=== PATIENT | male | born 1955 | race Caucasian/White ===

== ENCOUNTER 2022-03-31 16:48 | Inpatient (IN) | payer BC ==
[~2022-03-31] VITALS: Ht 167.6 cm; Wt 93.2 kg
[2022-03-31] MEDS ORDERED: ondansetron/PF 4mg/2ml inj IV ONE (17:15)
[2022-03-31] MEDS ORDERED: morphine 4 MG/ML inj SYRINge IV PRN (17:15)
[2022-03-31] MEDS ORDERED: budesonide 0.5mg/2ml UD nebule IH ONE (17:40)
[2022-03-31 17:47] LABS: CLARITY,URINE CLOUDY (Clear); COLOR,URINE YELLOW (Yellow); GLUCOSE, URINE NEGATIVE (Neg); KETONES,URINE NEGATIVE (Neg); LEUKOCYTE ESTERASE ,URINE NEGATIVE (Neg); NITRITES, URINE NEGATIVE (Neg); OCCULT BLOOD,URINE LARGE (Neg); PROTEIN,URINE 30 mg/dl (Neg); UROBILINOGEN,URINE 0.2 E.U/dL (0.2-1.0)
[2022-03-31 17:48] LABS: BASOPHILS # (AUTO) 0.1 X10'3 (0-0.2); BASOPHILS % (AUTO) 0.3 % (0-1); EOSINOPHILS % (AUTO) 0 % (0-6); HEMATOCRIT 48.6 % (42.0-52.0); HEMOGLOBIN 16.4 g/dl (14.0-17.9); LYMPHOCYTES # (AUTO) 0.7 X10'3 (1.1-4.8); LYMPHOCYTES % (AUTO) 3.5 % (21-51); MEAN CORPUSCULAR HEMOGLOBIN 29.7 PG (27.0-31.0); MEAN CORPUSCULAR HGB CONC 33.8 g/dL (33.0-36.5); MEAN CORPUSCULAR VOLUME 87.9 FL (78-98); MEAN PLATELET VOLUME 7.9 FL (7.4-10.4); MONOCYTES # (AUTO) 1.2 X10'3 (0-0.9); NEUTROPHILS # (AUTO) 18.5 X10'3 (1.8-7.7); NEUTROPHILS % (AUTO) 90.2 % (42-75); PLATELET COUNT 268 X10'3 (140-440); RED BLOOD COUNT 5.53 X10'6 (4.70-6.10); RED CELL DISTRIBUTION WIDTH 12.9 % (11.5-14.5); WHITE BLOOD COUNT 20.6 X10'3 (4.5-11.0)
[2022-03-31 18:01] LABS: UA COLLECTION TYPE CLN CATCH MIDSTREAM
[2022-03-31 18:03] LABS: WBC,URINE 0-4 /HPF (0-4)
[2022-03-31 18:04] LABS: BACTERIA,URINE 1+ /HPF (Neg); RBC,URINE 20-50 /HPF (0-2)
[2022-03-31 18:05] LABS: COARSE GRANULAR CAST 0-3 /LPF (NEGATIVE); HYALINE CASTS 0-3 /LPF (NEGATIVE); SQUAMOUS EPITHELIAL CELL,UR FEW /LPF (FEW)
[2022-03-31 18:06] LABS: MUCUS STRANDS FEW /LPF (Neg)
[2022-03-31] MEDS ORDERED: normal saline 1000ml 1,000 ML IV ONE (18:30)
[2022-03-31 18:37] LABS: ALANINE AMINOTRANSFERASE 26 U/L (12-78); ALBUMIN 3.7 G/DL (3.4-5.0); ALBUMIN/GLOBULIN RATIO 0.9 (1.1-1.5); ALKALINE PHOSPHATASE 78 IU/L (46-116); ANION GAP 8 (8-16); ASPARTATE AMINO TRANSFERASE 24 U/L (10-37); BILIRUBIN,TOTAL 1.4 MG/DL (0.1-1.0); BLOOD UREA NITROGEN 15 MG/DL (7-18); CALCIUM 8.1 MG/DL (8.5-10.1); CHLORIDE 107 MMOL/L (99-107); CREATININE 1.25 MG/DL (0.60-1.10); GLUCOSE 152 MG/DL (70-104); POTASSIUM 3.6 MMOL/L (3.5-5.1); SODIUM 142 MMOL/L (135-145); TOTAL CARBON DIOXIDE 26.7 MMOL/L (24-32); TOTAL PROTEIN 7.6 G/DL (6.4-8.2); eGFR 58 ML/MIN
[2022-03-31 18:40] LABS: LIPASE 4757 U/L (73-393)
[2022-03-31] MEDS ORDERED: meropenem inj 500 MG in normal saline 100ml IV soln 100 ML IV ONE (20:35)
[2022-03-31] MEDS ORDERED: acetaminophen 325mg tablet PO PRN ×2 (20:50)
[2022-03-31] MEDS ORDERED: magnesium Cl slow-release 64mg tablet PO PRN (20:50)
[2022-03-31] MEDS ORDERED: magnesium 4gm in 100ml NS 100 ML IV PRN (20:50)
[2022-03-31] MEDS ORDERED: potassium Cl 40MEQ/1/2NS 520ml 520 ML IV PRN (20:50)
[2022-03-31] MEDS ORDERED: potassium Cl 20 mEq SR tablet PO PRN ×2 (20:50)
[2022-03-31] MEDS ORDERED: morphine 2 MG/ML inj. syringe IV PRN (20:50)
[2022-03-31] MEDS ORDERED: temazepam 15mg capsule PO PRN (21:00)
[2022-03-31] MEDS: morphine 2 MG/ML inj. syringe IV PRN (21:12)
[2022-03-31] MEDS: normal saline 1000ml 1,000 ML IV SCH (22:02)
--- NOTE | 2022-03-31 23:08 | NUR ---
I ASSESSED AND AGREE WITH CENTER HUMAN RESOURCES MANAGER ASSESSMENT
[2022-04-01] MEDS: piperacillin/tazo 3.375gm/50ml 50 ML IV SCH ×3 (00:36→15:41)
[2022-04-01] MEDS: morphine 2 MG/ML inj. syringe IV PRN ×4 (01:57→19:32)
[2022-04-01] MEDS ORDERED: HYDR12.55 PO (02:00)
[2022-04-01] MEDS ORDERED: ATOR40TA72 PO (02:00)
[2022-04-01] MEDS ORDERED: LOSA50TA64 PO (02:00)
[2022-04-01] MEDS ORDERED: AMLO5TAB16 PO (02:00)
[2022-04-01] MEDS ORDERED: ASPI81TA52 PO (02:00)
[2022-04-01] MEDS ORDERED: morphine 2 MG/ML inj. syringe IV PRN (02:20)
[2022-04-01 03:46] LABS: BASOPHILS % (AUTO) 0.1 % (0-1); EOSINOPHILS % (AUTO) 0 % (0-6); HEMATOCRIT 45.9 % (42.0-52.0); HEMOGLOBIN 15.1 g/dl (14.0-17.9); LYMPHOCYTES # (AUTO) 0.6 X10'3 (1.1-4.8); LYMPHOCYTES % (AUTO) 3.2 % (21-51); MEAN CORPUSCULAR HEMOGLOBIN 29.3 PG (27.0-31.0); MEAN CORPUSCULAR VOLUME 88.7 FL (78-98); MEAN PLATELET VOLUME 7.5 FL (7.4-10.4); MONOCYTES # (AUTO) 1.2 X10'3 (0-0.9); MONOCYTES % (AUTO) 6.2 % (2-12); NEUTROPHILS % (AUTO) 90.5 % (42-75); PLATELET COUNT 213 X10'3 (140-440); RED BLOOD COUNT 5.17 X10'6 (4.70-6.10); RED CELL DISTRIBUTION WIDTH 13.1 % (11.5-14.5); WHITE BLOOD COUNT 18.8 X10'3 (4.5-11.0)
[2022-04-01] MEDS: normal saline 1000ml 1,000 ML IV SCH ×4 (03:52→22:37)
[2022-04-01 04:03] LABS: ALANINE AMINOTRANSFERASE 22 U/L (12-78); ALBUMIN 3.3 G/DL (3.4-5.0); ALBUMIN/GLOBULIN RATIO 1.1 (1.1-1.5); ALKALINE PHOSPHATASE 67 IU/L (46-116); ANION GAP 8 (8-16); ASPARTATE AMINO TRANSFERASE 24 U/L (10-37); BILIRUBIN,TOTAL 1.4 MG/DL (0.1-1.0); BLOOD UREA NITROGEN 16 MG/DL (7-18); BUN/CREATININE RATIO 12.6 (5.4-32.0); CALCIUM 7.9 MG/DL (8.5-10.1); CHLORIDE 109 MMOL/L (99-107); CREATININE 1.27 MG/DL (0.60-1.10); GLUCOSE 154 MG/DL (70-104); POTASSIUM 3.8 MMOL/L (3.5-5.1); SODIUM 145 MMOL/L (135-145); TOTAL CARBON DIOXIDE 27.7 MMOL/L (24-32); TOTAL PROTEIN 6.3 G/DL (6.4-8.2); eGFR 57 ML/MIN
[2022-04-01 04:09] LABS: LIPASE 2718 U/L (73-393)
[2022-04-01] MEDS: heparin, porcine 5000 units/ml vial SQ SCH ×2 (07:40→19:32)
[2022-04-01] MEDS: atorvastatin 20mg tablet PO SCH (07:40)
[2022-04-01] MEDS: HYDROcodone/acetaminophen 10/325mg tab PO PRN ×4 (07:41→22:37)
[2022-04-01] MEDS: amLODIPine 5mg tablet PO SCH (07:41)
[2022-04-01] MEDS: aspirin 81mg, enteric-coated 1 TAB TABLET.DR PO SCH (07:42)
[2022-04-01] MEDS: losartan 50mg tablet PO SCH ×2 (07:46→19:32)
--- NOTE | 2022-04-01 10:45 | NUR ---
Called ED @ 1033 to get report. Placed on hold. Will wait for their return call.
--- NOTE | 2022-04-01 11:03 | NUR ---
Called surgical floor twice to give report RN not available
--- NOTE | 2022-04-01 11:15 | NUR ---
Called ED to get report. Placed on hold. Time for break nurse to provide a break. Will try to get report upon return from break.
--- NOTE | 2022-04-01 11:40 | NUR ---
Received report from ED RNMg
[2022-04-01 12:15] VITALS: BP 132/77
[2022-04-01] MEDS: magnesium hydroxide 30ml (MOM) UD suspension PO PRN (13:02)
[2022-04-01 18:00] VITALS: BP 141/72
--- NOTE | 2022-04-01 18:00 | NUR ---
Problems reprioritized. Patient report given, questions answered & plan of care reviewed with NICKI Asencio.
--- NOTE | 2022-04-01 19:10 | NUR ---
Patient in room ADALID 344. I have received report from CHRISTAL CACERES and had the opportunity to ask questions and assume patient care.
[2022-04-01 22:00] VITALS: BP 139/83
[2022-04-02] VITALS (22 sets, daily range): BP systolic 114–161; BP diastolic 73–94
[2022-04-02] MEDS: piperacillin/tazo 3.375gm/50ml 50 ML IV SCH ×4 (00:36→23:27)
[2022-04-02] MEDS: morphine 2 MG/ML inj. syringe IV PRN ×4 (00:36→21:45)
[2022-04-02] MEDS: HYDROcodone/acetaminophen 10/325mg tab PO PRN ×4 (03:07→18:43)
[2022-04-02] MEDS: normal saline 1000ml 1,000 ML IV SCH ×4 (05:03→21:47)
[2022-04-02] MEDS: ondansetron/PF 4mg/2ml inj IV PRN (05:24)
[2022-04-02 05:51] LABS: BASOPHILS % (AUTO) 0.2 % (0-1); EOSINOPHILS # (AUTO) 0.1 X10'3 (0-0.9); EOSINOPHILS % (AUTO) 0.4 % (0-6); HEMATOCRIT 40.8 % (42.0-52.0); HEMOGLOBIN 13.9 g/dl (14.0-17.9); LYMPHOCYTES # (AUTO) 0.6 X10'3 (1.1-4.8); LYMPHOCYTES % (AUTO) 3.5 % (21-51); MEAN CORPUSCULAR VOLUME 88.3 FL (78-98); MEAN PLATELET VOLUME 7.5 FL (7.4-10.4); MONOCYTES # (AUTO) 1.1 X10'3 (0-0.9); MONOCYTES % (AUTO) 6.7 % (2-12); NEUTROPHILS # (AUTO) 13.9 X10'3 (1.8-7.7); NEUTROPHILS % (AUTO) 89.2 % (42-75); PLATELET COUNT 194 X10'3 (140-440); RED BLOOD COUNT 4.61 X10'6 (4.70-6.10); RED CELL DISTRIBUTION WIDTH 13.1 % (11.5-14.5); WHITE BLOOD COUNT 15.6 X10'3 (4.5-11.0)
[2022-04-02 06:03] LABS: ALANINE AMINOTRANSFERASE 23 U/L (12-78); ALBUMIN/GLOBULIN RATIO 0.9 (1.1-1.5); ALKALINE PHOSPHATASE 77 IU/L (46-116); ANION GAP 9 (8-16); ASPARTATE AMINO TRANSFERASE 33 U/L (10-37); BILIRUBIN,TOTAL 2.8 MG/DL (0.1-1.0); BLOOD UREA NITROGEN 17 MG/DL (7-18); BUN/CREATININE RATIO 15.5 (5.4-32.0); CALCIUM 8.1 MG/DL (8.5-10.1); CHLORIDE 111 MMOL/L (99-107); GLUCOSE 119 MG/DL (70-104); POTASSIUM 3.7 MMOL/L (3.5-5.1); SODIUM 145 MMOL/L (135-145); TOTAL CARBON DIOXIDE 24.9 MMOL/L (24-32); TOTAL PROTEIN 6.3 G/DL (6.4-8.2); eGFR 67 ML/MIN
--- NOTE | 2022-04-02 06:30 | NUR ---
Patient in room ADALID 344. I have received report from NICKI Asencio and had the opportunity to ask questions and assume patient care.
[2022-04-02] MEDS: atorvastatin 20mg tablet PO SCH (08:07)
[2022-04-02] MEDS: amLODIPine 5mg tablet PO SCH (08:07)
[2022-04-02] MEDS: aspirin 81mg, enteric-coated 1 TAB TABLET.DR PO SCH (08:07)
[2022-04-02] MEDS: losartan 50mg tablet PO SCH ×2 (08:07→21:42)
[2022-04-02] MEDS: heparin, porcine 5000 units/ml vial SQ SCH ×2 (08:08→21:43)
[2022-04-02] MEDS ORDERED: bisacodyl 10mg suppository rectal RC PRN (08:25)
[2022-04-02 11:48] LABS: LIPASE 730 U/L (73-393)
[2022-04-02] MEDS ORDERED: BUPIVAcaine 0.5% inj/PF 30 ML ONE (12:12)
[2022-04-02] MEDS ORDERED: ketorolac trometh. 30mg/ml inj. IV ONE (12:35)
[2022-04-02] MEDS ORDERED: meperidine/PF 25mg/ml syringe IV PRN ×3 (12:35)
[2022-04-02] MEDS ORDERED: labetalol 20mg/4ml (5mg/ml) syringe IV PRN (12:35)
[2022-04-02] MEDS ORDERED: morphine 4 MG/ML inj SYRINge IV PRN (12:35)
[2022-04-02] MEDS ORDERED: proCHLORperazine 10 MG/2 ml inj IV PRN (12:35)
[2022-04-02] MEDS ORDERED: ringers solution, lacted 1,000 ML IV SCH (12:35)
[2022-04-02] MEDS ORDERED: hydrALAZINE 20mg/ml inj. IV PRN (12:35)
[2022-04-02] MEDS ORDERED: ondansetron/PF 4mg/2ml inj IV PRN ×2 (12:35→14:55)
[2022-04-02] MEDS ORDERED: acetaminophen 1,000mg/100ml IV 100 ML IV PRN (12:35)
[2022-04-02] MEDS ORDERED: morphine 2 MG/ML inj. syringe IV PRN (12:35)
[2022-04-02] MEDS ORDERED: sevoflurane 250ml liquid IH ONE (12:37)
[2022-04-02] MEDS ORDERED: midazolam 1 mg/ML 2ml injection ONE (12:39)
[2022-04-02] MEDS ORDERED: fentaNYL /PF 50mcg/ml 5ml ampule ONE (12:40)
[2022-04-02] MEDS ORDERED: rocuronium 10mg/ml inj IV ONE ×2 (13:07→14:32)
[2022-04-02] MEDS ORDERED: LIDOcaine 2% (20mg/ml) 5ml vial ONE (13:07)
[2022-04-02] MEDS ORDERED: propofol inj 20 ML IV ONE (13:07)
[2022-04-02] MEDS ORDERED: ceFOXitin 1000 MG inj ONE ×2 (13:07)
[2022-04-02] MEDS ORDERED: ePHEDrine 50MG/ML INJ. ONE (13:08)
[2022-04-02] MEDS ORDERED: BUPIVAcaine 0.5% inj/PF 30 ml vial IJ ONE (13:29)
[2022-04-02] MEDS ORDERED: BUPIVACAINE liposomal/PF 13.3 MG/ML vial IM ONE (14:31)
[2022-04-02] MEDS ORDERED: BUPIVAcaine/PF 5 mg/ml 10ml ONE (14:31)
[2022-04-02] MEDS ORDERED: dexamethasone sod phosphate 4mg/ml inj. ONE (14:32)
[2022-04-02] MEDS ORDERED: ondansetron/PF 4mg/2ml inj ONE (14:32)
[2022-04-02] MEDS ORDERED: naloxone 0.4 mg/ml inj IV PRN (14:55)
[2022-04-02] MEDS ORDERED: sugammadex 200mg/2ml injection IV ONE (15:03)
[2022-04-02] MEDS ORDERED: furosemide 40mg/4ml inj ONE (15:13)
--- NOTE | 2022-04-02 15:15 | NUR ---
Received from OR via HOSPITAL BED, accompanied by Anesthesiologist DR BRUCE and report given by Anesthesiolgist. PT IS GROGGY, BUT DOES RESPOND TO VERBAL STIMULI. PT PLACED ON BEDSIDE MONITOR, VSS. PT RECEIVING 15L O2 TO MASK, ANESTHESIA PLACED ORAL AIRWAY D/T LOW O2 SAT. VERBAL ORDER RECEIVED FROM ANESTHESIA TO OVERRIDE LASIX, 20MG LASIX GIVEN D/T PT LUNGS SOUND OF FINE CRACKLES, SLIGHT EXPIRATORY WHEEZE. PAGE HAS BEEN PLACED OT RT FOR BREATHING TREATMENT. PT HAS 20G PIV TO LEFT WRIST WITH LR INFUSING ORDERED. PT HAS MIDLINE ABLE DRSG WITH SMALL AMOUNT OF DRAINAGE NOTED AND MARKED. DAV DRAIN TO RT UPPER QUAD WITH DRSG. SMALL AMOUNT OF SEROSANGUINEOUS DRAINAGE NOTED IN BULB. PT HAS F/C WITH SUMIT URINE DRAINING TO GRAVITY. PT RESTING WITH NO S/S OF DISCOMFORT NOTED AT THIS TIME. WILL CONTINUE TO ASSESS
[2022-04-02] MEDS ORDERED: ipratropium/albuterol 3ml nebule IH ONE (15:20)
--- NOTE | 2022-04-02 16:15 | NUR ---
90ML OF SEROSANGUINEOUS DRAINAGE EMPTIED FROM DAV
--- NOTE | 2022-04-02 16:35 | NUR ---
Received report from ED RNDerrick
[2022-04-02] MEDS ORDERED: ipratropium/albuterol 3ml nebule NEB PRN (16:45)
--- NOTE | 2022-04-02 16:52 | NUR ---
REPORT GIVEN TO CHRISTAL RN AND ALL QUESTIONS ANSWERED. PATIENT TRANSFERRED TO SURG. LABELED BELONGINGS PRESENT AND DELIVERED TO ROOM. RN PRESENT ALL CRITERIA FOR TRANSFER BACK TO THE FLOOR HAS BEEN ACHIEVED. VSS. PAIN AT A TOLERABLE LEVEL. BED LOW, CALL LIGHT PRESENT AND 2 RAILS DOWN. RN AWARE THAT PATIENT HAS ARRIVED. TO ACCEPT CARE OF PATIENT.
[2022-04-02] MEDS ORDERED: HALLS - SOOTHE MENTHOL 1.8 MG cough drop LOZENGE MM PRN (18:45)
[2022-04-03] MEDS: morphine 2 MG/ML inj. syringe IV PRN ×5 (02:28→21:09)
[2022-04-03 06:00] VITALS: BP 142/79
[2022-04-03] MEDS: normal saline 1000ml 1,000 ML IV SCH ×3 (06:02→18:33)
--- NOTE | 2022-04-03 06:30 | NUR ---
Problems reprioritized. Patient report given, questions answered & plan of care reviewed with NICKI Ortiz.
[2022-04-03 06:35] LABS: ALANINE AMINOTRANSFERASE 79 U/L (12-78); ALBUMIN 2.4 G/DL (3.4-5.0); ALBUMIN/GLOBULIN RATIO 0.7 (1.1-1.5); ALKALINE PHOSPHATASE 90 IU/L (46-116); ANION GAP 8 (8-16); ASPARTATE AMINO TRANSFERASE 106 U/L (10-37); BILIRUBIN,TOTAL 1.2 MG/DL (0.1-1.0); BLOOD UREA NITROGEN 19 MG/DL (7-18); BUN/CREATININE RATIO 16.7 (5.4-32.0); CHLORIDE 111 MMOL/L (99-107); CREATININE 1.14 MG/DL (0.60-1.10); GLUCOSE 149 MG/DL (70-104); LIPASE 163 U/L (73-393); MAGNESIUM 2.7 MG/DL (1.5-2.4); PHOSPHORUS 1.8 MG/DL (2.3-4.5); POTASSIUM 3.7 MMOL/L (3.5-5.1); SODIUM 145 MMOL/L (135-145); TOTAL CARBON DIOXIDE 26.5 MMOL/L (24-32); TOTAL PROTEIN 5.8 G/DL (6.4-8.2); eGFR 65 ML/MIN
[2022-04-03 06:40] LABS: BASOPHILS % (AUTO) 0 % (0-1); EOSINOPHILS % (AUTO) 0 % (0-6); HEMATOCRIT 36.5 % (42.0-52.0); HEMOGLOBIN 12.4 g/dl (14.0-17.9); LYMPHOCYTES # (AUTO) 0.4 X10'3 (1.1-4.8); LYMPHOCYTES % (AUTO) 3.4 % (21-51); MEAN CORPUSCULAR HEMOGLOBIN 29.7 PG (27.0-31.0); MEAN CORPUSCULAR VOLUME 87.5 FL (78-98); MEAN PLATELET VOLUME 7.5 FL (7.4-10.4); MONOCYTES # (AUTO) 0.7 X10'3 (0-0.9); MONOCYTES % (AUTO) 5.3 % (2-12); NEUTROPHILS % (AUTO) 91.3 % (42-75); PLATELET COUNT 199 X10'3 (140-440); RED BLOOD COUNT 4.17 X10'6 (4.70-6.10); WHITE BLOOD COUNT 13.1 X10'3 (4.5-11.0)
--- NOTE | 2022-04-03 06:40 | NUR ---
Problems reprioritized. Patient report given, questions answered & plan of care reviewed with NICKI Ortiz.
[2022-04-03] MEDS: aspirin 81mg, enteric-coated 1 TAB TABLET.DR PO SCH (08:00)
--- NOTE | 2022-04-03 08:02 | NUR ---
Patient in room ADALID 344A. I have received report from NICKI SIEGEL and had the opportunity to ask questions and assume patient care.
[2022-04-03] MEDS: HYDROcodone/acetaminophen 10/325mg tab PO PRN ×4 (09:19→23:16)
[2022-04-03] MEDS: atorvastatin 20mg tablet PO SCH (09:27)
[2022-04-03] MEDS: amLODIPine 5mg tablet PO SCH (09:29)
[2022-04-03] MEDS: losartan 50mg tablet PO SCH ×2 (09:29→20:24)
[2022-04-03] MEDS: heparin, porcine 5000 units/ml vial SQ SCH ×2 (09:30→20:24)
[2022-04-03 10:00] VITALS: BP 155/81
[2022-04-03] MEDS: piperacillin/tazo 3.375gm/50ml 50 ML IV SCH ×3 (10:51→23:53)
[2022-04-03] MEDS: ondansetron/PF 4mg/2ml inj IV PRN (11:48)
[2022-04-03 18:30] VITALS: BP 162/91
--- NOTE | 2022-04-03 18:32 | NUR ---
Problems reprioritized. Patient report given, questions answered & plan of care reviewed with NICKI ANAYA.
[2022-04-03 23:00] VITALS: BP 155/71
[2022-04-04] MEDS: normal saline 1000ml 1,000 ML IV SCH ×3 (01:24→18:27)
[2022-04-04] MEDS: morphine 2 MG/ML inj. syringe IV PRN ×6 (01:24→23:12)
[2022-04-04] MEDS: HYDROcodone/acetaminophen 10/325mg tab PO PRN ×3 (03:11→12:05)
[2022-04-04 06:00] VITALS: BP 157/86
[2022-04-04 06:05] LABS: BASOPHILS % (AUTO) 0 % (0-1); EOSINOPHILS # (AUTO) 0.1 X10'3 (0-0.9); EOSINOPHILS % (AUTO) 0.9 % (0-6); HEMATOCRIT 35.5 % (42.0-52.0); HEMOGLOBIN 12.2 g/dl (14.0-17.9); LYMPHOCYTES # (AUTO) 0.5 X10'3 (1.1-4.8); LYMPHOCYTES % (AUTO) 3.7 % (21-51); MEAN CORPUSCULAR HEMOGLOBIN 30.2 PG (27.0-31.0); MEAN CORPUSCULAR HGB CONC 34.5 g/dL (33.0-36.5); MEAN CORPUSCULAR VOLUME 87.7 FL (78-98); MEAN PLATELET VOLUME 7.2 FL (7.4-10.4); MONOCYTES # (AUTO) 1.2 X10'3 (0-0.9); NEUTROPHILS # (AUTO) 11.7 X10'3 (1.8-7.7); NEUTROPHILS % (AUTO) 86.4 % (42-75); PLATELET COUNT 218 X10'3 (140-440); RED BLOOD COUNT 4.05 X10'6 (4.70-6.10); RED CELL DISTRIBUTION WIDTH 12.7 % (11.5-14.5); WHITE BLOOD COUNT 13.5 X10'3 (4.5-11.0)
[2022-04-04 06:29] LABS: ALANINE AMINOTRANSFERASE 115 U/L (12-78); ALBUMIN 2.3 G/DL (3.4-5.0); ALBUMIN/GLOBULIN RATIO 0.7 (1.1-1.5); ALKALINE PHOSPHATASE 202 IU/L (46-116); ANION GAP 7 (8-16); ASPARTATE AMINO TRANSFERASE 153 U/L (10-37); BILIRUBIN,TOTAL 1.9 MG/DL (0.1-1.0); BLOOD UREA NITROGEN 17 MG/DL (7-18); BUN/CREATININE RATIO 16.7 (5.4-32.0); CALCIUM 7.7 MG/DL (8.5-10.1); CHLORIDE 110 MMOL/L (99-107); CREATININE 1.02 MG/DL (0.60-1.10); GLUCOSE 112 MG/DL (70-104); LIPASE 83 U/L (73-393); MAGNESIUM 2.4 MG/DL (1.5-2.4); PHOSPHORUS 1.9 MG/DL (2.3-4.5); POTASSIUM 3.6 MMOL/L (3.5-5.1); SODIUM 144 MMOL/L (135-145); TOTAL CARBON DIOXIDE 27.2 MMOL/L (24-32); TOTAL PROTEIN 5.6 G/DL (6.4-8.2); eGFR 74 ML/MIN
--- NOTE | 2022-04-04 06:36 | NUR ---
Problems reprioritized. Patient report given, questions answered & plan of care reviewed with HUGH. Addendum: 04/04/22 at 0636 by Esau Jones RN Amended: Links added.
[2022-04-04] MEDS: aspirin 81mg, enteric-coated 1 TAB TABLET.DR PO SCH (07:15)
[2022-04-04] MEDS: atorvastatin 20mg tablet PO SCH (07:15)
[2022-04-04] MEDS: piperacillin/tazo 3.375gm/50ml 50 ML IV SCH ×2 (07:15→15:31)
[2022-04-04] MEDS: amLODIPine 5mg tablet PO SCH (07:16)
[2022-04-04] MEDS: losartan 50mg tablet PO SCH ×2 (07:16→20:04)
[2022-04-04] MEDS: heparin, porcine 5000 units/ml vial SQ SCH ×2 (07:16→20:04)
--- NOTE | 2022-04-04 10:23 | NUR ---
Ambulated in bryan x3 laps. Pt tolerated well. 02 94% 5LNC
[2022-04-04 12:00] VITALS: BP 164/72
--- NOTE | 2022-04-04 12:05 | NUR ---
Pt ambulated in bryan with 4x laps. Tolerated well, 94% 6LNC
[2022-04-04] MEDS: HYDROcodone/acetaminophen 5mg/325mg tablet PO PRN ×2 (15:31→20:00)
--- NOTE | 2022-04-04 16:39 | NUR ---
Pt ambulated in bryan x4 laps. O2 tank was empty and sats 84% ambulating on RA. 95% 5LNC. RN to continue to monitor.
[2022-04-04 18:00] VITALS: BP 143/79
[2022-04-04 18:30] VITALS: BP 143/79
--- NOTE | 2022-04-04 18:45 | NUR ---
DECREASED OXYGEN FROM 5 LPM TO 4 LPM
[2022-04-05] MEDS: piperacillin/tazo 3.375gm/50ml 50 ML IV SCH ×3 (00:44→15:32)
[2022-04-05] MEDS: HYDROcodone/acetaminophen 5mg/325mg tablet PO PRN ×2 (00:46→04:25)
[2022-04-05] MEDS: normal saline 1000ml 1,000 ML IV SCH ×3 (02:17→14:18)
[2022-04-05 05:58] LABS: BASOPHILS % (AUTO) 0.1 % (0-1); EOSINOPHILS # (AUTO) 0.2 X10'3 (0-0.9); EOSINOPHILS % (AUTO) 1.7 % (0-6); HEMATOCRIT 37.7 % (42.0-52.0); HEMOGLOBIN 12.5 g/dl (14.0-17.9); LYMPHOCYTES # (AUTO) 0.6 X10'3 (1.1-4.8); LYMPHOCYTES % (AUTO) 4.7 % (21-51); MEAN CORPUSCULAR HEMOGLOBIN 29.1 PG (27.0-31.0); MEAN CORPUSCULAR HGB CONC 33.1 g/dL (33.0-36.5); MEAN PLATELET VOLUME 7.3 FL (7.4-10.4); MONOCYTES # (AUTO) 1.4 X10'3 (0-0.9); MONOCYTES % (AUTO) 10.4 % (2-12); NEUTROPHILS # (AUTO) 11.4 X10'3 (1.8-7.7); NEUTROPHILS % (AUTO) 83.1 % (42-75); PLATELET COUNT 231 X10'3 (140-440); RED BLOOD COUNT 4.29 X10'6 (4.70-6.10); RED CELL DISTRIBUTION WIDTH 13.2 % (11.5-14.5); WHITE BLOOD COUNT 13.8 X10'3 (4.5-11.0)
[2022-04-05 06:00] VITALS: BP 150/74
[2022-04-05 06:16] LABS: ALANINE AMINOTRANSFERASE 107 U/L (12-78); ALBUMIN 2.2 G/DL (3.4-5.0); ALBUMIN/GLOBULIN RATIO 0.6 (1.1-1.5); ALKALINE PHOSPHATASE 291 IU/L (46-116); ANION GAP 8 (8-16); ASPARTATE AMINO TRANSFERASE 113 U/L (10-37); BILIRUBIN,TOTAL 2.7 MG/DL (0.1-1.0); BLOOD UREA NITROGEN 15 MG/DL (7-18); BUN/CREATININE RATIO 14.2 (5.4-32.0); CALCIUM 8.1 MG/DL (8.5-10.1); CHLORIDE 106 MMOL/L (99-107); CREATININE 1.06 MG/DL (0.60-1.10); GLUCOSE 105 MG/DL (70-104); LIPASE < 50 U/L (73-393); MAGNESIUM 2.1 MG/DL (1.5-2.4); POTASSIUM 3.3 MMOL/L (3.5-5.1); SODIUM 142 MMOL/L (135-145); TOTAL CARBON DIOXIDE 28.1 MMOL/L (24-32); TOTAL PROTEIN 5.8 G/DL (6.4-8.2); eGFR 70 ML/MIN
--- NOTE | 2022-04-05 06:45 | NUR ---
Patient in room ADALID 344. I have received report from Oscar CACERES and had the opportunity to ask questions and assume patient care.
--- NOTE | 2022-04-05 07:01 | NUR ---
Problems reprioritized. Patient report given, questions answered & plan of care reviewed with DAVID. Addendum: 04/05/22 at 0701 by Esau Jones RN Amended: Links added.
[2022-04-05] MEDS: heparin, porcine 5000 units/ml vial SQ SCH ×2 (08:13→21:11)
[2022-04-05] MEDS: aspirin 81mg, enteric-coated 1 TAB TABLET.DR PO SCH (08:14)
[2022-04-05] MEDS: amLODIPine 5mg tablet PO SCH (08:14)
[2022-04-05] MEDS: losartan 50mg tablet PO SCH ×2 (08:14→21:12)
[2022-04-05] MEDS: atorvastatin 20mg tablet PO SCH (08:15)
[2022-04-05] MEDS: HYDROcodone/acetaminophen 10/325mg tab PO PRN ×4 (08:34→21:35)
[2022-04-05 11:00] VITALS: BP 153/78
--- NOTE | 2022-04-05 11:42 | NUR ---
Initial: Pt admit for gallstone pancreatitis, currently POD #3 s/p open cholecystectomy. Diet was advanced to ice chips 04/03 with orders to remove NGT. Recommend advancing to regular diet as medically indicated, pt now day 5 with an insufficient diet order. LBM 2, not receiving any routine bowel care and last received PRN MoM 04/01. Unable to provide nutrition intervention to assist with bowel regularity given current diet order. Per dowel sander operator bowel sounds are much improved. Will continue to follow closely and make recommendations as appropriate. Recommendations: 1) Advance to regular diet as medically indicated; low fat diet if pt with c/o pain and/or diarrhea with diet advancement 2) Initiate nutrition support if expected to continue with insufficient diet order, now day 5 3) Routine bowel care; no BM x 7 days per EMR 4) Scaled weight this admit; subsequent weekly scaled weights Addendum: 04/05/22 at [address] Amended: Links added.
[2022-04-05] MEDS ORDERED: potassium phosphate inj 30 MMOL in normal saline 250ml IV soln 250 ML IV ONE (14:15)
--- NOTE | 2022-04-05 14:39 | NUR ---
Dr Oden rounded aware patients T Bili today 2.7 up from 1.9 will continue to monitor. Change diet to clear in the am.
[2022-04-05 18:00] VITALS: BP 178/87
--- NOTE | 2022-04-05 18:36 | NUR ---
Problems reprioritized. Patient report given, questions answered & plan of care reviewed with Marifer CACERES.
[2022-04-05 21:06] VITALS: BP 154/81
[2022-04-06] MEDS: piperacillin/tazo 3.375gm/50ml 50 ML IV SCH ×4 (00:18→23:33)
[2022-04-06] MEDS: normal saline 1000ml 1,000 ML IV SCH ×2 (00:22→13:00)
[2022-04-06] MEDS: HYDROcodone/acetaminophen 10/325mg tab PO PRN ×7 (01:06→23:36)
[2022-04-06 05:12] VITALS: BP 177/87
--- NOTE | 2022-04-06 06:34 | NUR ---
Problems reprioritized. Patient report given, questions answered & plan of care reviewed with CRISTIAN SMALL.
[2022-04-06 06:37] LABS: LIPASE < 50 U/L (73-393); MAGNESIUM 2.1 MG/DL (1.5-2.4); PHOSPHORUS 2.3 MG/DL (2.3-4.5)
--- NOTE | 2022-04-06 06:50 | NUR ---
Patient in room ADALID 344. I have received report from NICKI Caicedo and had the opportunity to ask questions and assume patient care.
[2022-04-06] MEDS: atorvastatin 20mg tablet PO SCH (08:38)
[2022-04-06] MEDS: aspirin 81mg, enteric-coated 1 TAB TABLET.DR PO SCH (08:38)
[2022-04-06] MEDS: heparin, porcine 5000 units/ml vial SQ SCH ×2 (08:39→19:28)
[2022-04-06] MEDS: losartan 50mg tablet PO SCH ×3 (08:39→19:25)
[2022-04-06] MEDS: amLODIPine 5mg tablet PO SCH (08:41)
[2022-04-06] MEDS: magnesium hydroxide 30ml (MOM) UD suspension PO PRN (08:54)
[2022-04-06 11:00] VITALS: BP 162/76
--- NOTE | 2022-04-06 11:49 | NUR ---
Student Medication Administration: For this medication-pass time frame, all medication were reviewed, dispensed, administered and documented per hospital policy by kiran Sow.
--- NOTE | 2022-04-06 11:49 | NUR ---
Student documentation: I have reviewed and agree with all interventions, assessments performed and documented by Juanjose student nurse.
--- NOTE | 2022-04-06 12:50 | NUR ---
PRESSURE ULCER EDUCATION: DEFINITION: A pressure ulcer is an area of skin that breaks down when you stay in one position too long. The constant pressure against the skin reduces the blood flow to that area and the affected tissue dies. CAUSES: "Being bedridden or in a wheelchair "Fragile skin "Having a chronic condition, such as diabetes or vascular disease "Inability to move certain parts of your body without assistance "Older age "Incontinence of urine or stool SYMPTOMS: "A reddened area that DOES NOT turn white when pressed on - this can be the beginning of a pressure ulcer "A blister, deep sore or a crater - these can be advanced pressure ulcers FIRST AID: "Relieve the pressure on this area "Keep the area clean and dry "Call your primary doctor if you see any of the above symptoms "DO NOT massage the area "DO NOT use a donut shaped or ring shaped pillow- these actually interfere with the blood flow and cause complications PREVENTION: "Check for pressure ulcers everyday "Change position at least every two hours to relieve pressure "Use items that help relieve pressure- pillows, sheepskin, foam padding, and powders. "Keep skin clean and dry "Eat healthy well balanced meals "Exercise daily IF YOU SEE ANY OF THESE SYMPTOMS WHILE IN THE HOSPITAL - TELL YOUR NURSE IMMEDIATELY. IF YOU SEE ANY OF THESE SYMPTOMS WHILE AT HOME OR HAVE ANY QUESTIONS OR CONCERNS ABOUT PRESSURE ULCERS - CALL YOUR PRIMARY DOCTOR IMMEDIATELY. Addendum: 04/06/22 at 1250 by Fina Milan RN Amended: Links added.
[2022-04-06 13:12] VITALS: BP 150/82
[2022-04-06 18:00] VITALS: BP 156/82
--- NOTE | 2022-04-06 18:12 | NUR ---
Problems reprioritized. Patient report given, questions answered & plan of care reviewed with ryan. Addendum: 04/06/22 at 1813 by Lora Lincoln LVN Problems reprioritized. Patient report given, questions answered & plan of care reviewed with NICKI Caicedo.
[2022-04-06 19:32] VITALS: BP 115/89
[2022-04-06 23:33] VITALS: BP 159/81
[2022-04-07] MEDS: HYDROcodone/acetaminophen 10/325mg tab PO PRN ×5 (04:04→21:51)
[2022-04-07] MEDS: normal saline 1000ml 1,000 ML IV SCH ×2 (06:17→09:08)
[2022-04-07 06:18] LABS: LIPASE 52 U/L (73-393); MAGNESIUM 2.1 MG/DL (1.5-2.4); PHOSPHORUS 2.1 MG/DL (2.3-4.5)
--- NOTE | 2022-04-07 06:31 | NUR ---
Problems reprioritized. Patient report given, questions answered & plan of care reviewed with NICKI HERNANDEZ.
[2022-04-07 07:00] VITALS: BP 158/80
--- NOTE | 2022-04-07 07:01 | NUR ---
Patient in room ADALID 344. I have received report from Marifer CACERES and had the opportunity to ask questions and assume patient care.
[2022-04-07 07:20] VITALS: BP 158/80
[2022-04-07] MEDS: aspirin 81mg, enteric-coated 1 TAB TABLET.DR PO SCH (08:41)
[2022-04-07] MEDS: losartan 50mg tablet PO SCH ×2 (08:41→21:58)
[2022-04-07] MEDS: piperacillin/tazo 3.375gm/50ml 50 ML IV SCH ×2 (08:41→15:43)
[2022-04-07] MEDS: atorvastatin 20mg tablet PO SCH (08:42)
[2022-04-07] MEDS: amLODIPine 5mg tablet PO SCH (08:43)
[2022-04-07] MEDS: heparin, porcine 5000 units/ml vial SQ SCH ×2 (08:45→21:53)
[2022-04-07 10:53] LABS: BASOPHILS # (AUTO) 0.1 X10'3 (0-0.2); BASOPHILS % (AUTO) 0.3 % (0-1); EOSINOPHILS # (AUTO) 0.4 X10'3 (0-0.9); EOSINOPHILS % (AUTO) 1.9 % (0-6); HEMATOCRIT 36.7 % (42.0-52.0); HEMOGLOBIN 12.3 g/dl (14.0-17.9); LYMPHOCYTES # (AUTO) 0.6 X10'3 (1.1-4.8); MEAN CORPUSCULAR HEMOGLOBIN 29.4 PG (27.0-31.0); MEAN CORPUSCULAR HGB CONC 33.4 g/dL (33.0-36.5); MEAN PLATELET VOLUME 7.6 FL (7.4-10.4); MONOCYTES # (AUTO) 1.8 X10'3 (0-0.9); MONOCYTES % (AUTO) 9.2 % (2-12); NEUTROPHILS # (AUTO) 16.5 X10'3 (1.8-7.7); NEUTROPHILS % (AUTO) 85.6 % (42-75); PLATELET COUNT 250 X10'3 (140-440); RED BLOOD COUNT 4.17 X10'6 (4.70-6.10); RED CELL DISTRIBUTION WIDTH 13.1 % (11.5-14.5); WHITE BLOOD COUNT 19.3 X10'3 (4.5-11.0)
[2022-04-07 11:00] VITALS: BP 147/81
[2022-04-07] MEDS: furosemide 20 MG/2 ML vial IV SCH ×2 (11:10→15:51)
[2022-04-07 11:15] LABS: ALANINE AMINOTRANSFERASE 57 U/L (12-78); ALBUMIN 1.9 G/DL (3.4-5.0); ALBUMIN/GLOBULIN RATIO 0.5 (1.1-1.5); ALKALINE PHOSPHATASE 328 IU/L (46-116); ANION GAP 9 (8-16); ASPARTATE AMINO TRANSFERASE 52 U/L (10-37); BILIRUBIN,TOTAL 1.4 MG/DL (0.1-1.0); BLOOD UREA NITROGEN 12 MG/DL (7-18); BUN/CREATININE RATIO 14.1 (5.4-32.0); CALCIUM 8.1 MG/DL (8.5-10.1); CHLORIDE 106 MMOL/L (99-107); CREATININE 0.85 MG/DL (0.60-1.10); GLUCOSE 108 MG/DL (70-104); POTASSIUM 3.3 MMOL/L (3.5-5.1); SODIUM 140 MMOL/L (135-145); TOTAL CARBON DIOXIDE 24.7 MMOL/L (24-32); TOTAL PROTEIN 5.5 G/DL (6.4-8.2); eGFR > 90 ML/MIN
[2022-04-07] MEDS ORDERED: potassium phosphate inj 30 MMOL in normal saline 250ml IV soln 250 ML IV ONE (13:10)
--- NOTE | 2022-04-07 13:24 | NUR ---
DC DAV drain on right abdomen. Pt tolerated procedure well. 60ml of serosanguineous drainage emptied prior to removal.
[2022-04-07 18:00] VITALS: BP 140/80
--- NOTE | 2022-04-07 18:36 | NUR ---
Problems reprioritized. Patient report given, questions answered & plan of care reviewed with Marifer CACERES.
[2022-04-07 22:00] VITALS: BP 144/78
[2022-04-08] VITALS (7 sets, daily range): BP systolic 114–150; BP diastolic 68–78
[2022-04-08] MEDS: piperacillin/tazo 3.375gm/50ml 50 ML IV SCH ×3 (00:38→15:34)
[2022-04-08] MEDS: furosemide 20 MG/2 ML vial IV SCH ×3 (00:39→15:52)
[2022-04-08] MEDS: HYDROcodone/acetaminophen 10/325mg tab PO PRN ×5 (01:39→21:39)
--- NOTE | 2022-04-08 06:20 | NUR ---
Problems reprioritized. Patient report given, questions answered & plan of care reviewed with NICKI RENEE.
[2022-04-08] MEDS: aspirin 81mg, enteric-coated 1 TAB TABLET.DR PO SCH (08:17)
[2022-04-08] MEDS: amLODIPine 5mg tablet PO SCH (08:18)
[2022-04-08] MEDS: atorvastatin 20mg tablet PO SCH (08:19)
[2022-04-08] MEDS: losartan 50mg tablet PO SCH ×2 (08:21→21:38)
[2022-04-08] MEDS: heparin, porcine 5000 units/ml vial SQ SCH ×2 (08:22→21:42)
--- NOTE | 2022-04-08 08:30 | NUR ---
Student Medication Administration: For this medication-pass time frame, all medication were reviewed, dispensed, administered and documented per hospital policy by Corrine Felix and Kimberly Musa.
--- NOTE | 2022-04-08 09:33 | NUR ---
Reassessment: Patient's diet was advanced to clear liquids 04/05 then full liquids 04/07, documented with 100% PO intake of first two full liquid meals. Per EMR pt with active bowel sounds and LBM 04/07. Hopeful that diet can be advanced to solid food soon. If diet does not get advanced or PO intake is poor with diet advancement pt would benefit from Ensure to assist with meeting estimated nutrient needs. Will continue to follow closely and make recommendations as appropriate. Recommendations: 1) Advance to regular diet as medically indicated; low fat diet if pt with c/o pain and/or diarrhea with diet advancement 2) Monitor need for ONS; Ensure Plus HP TID if pt to continue on full liquid diet 3) Routine bowel care; previously constipated 4) Scaled weight this admit; subsequent weekly scaled weights Addendum: 04/08/22 at [address] Amended: Links added.
[2022-04-08 11:50] LABS: BASOPHILS # (AUTO) 0.1 X10'3 (0-0.2); BASOPHILS % (AUTO) 0.3 % (0-1); EOSINOPHILS # (AUTO) 0.5 X10'3 (0-0.9); HEMATOCRIT 37.9 % (42.0-52.0); HEMOGLOBIN 12.9 g/dl (14.0-17.9); LYMPHOCYTES # (AUTO) 0.9 X10'3 (1.1-4.8); LYMPHOCYTES % (AUTO) 3.8 % (21-51); MEAN CORPUSCULAR HEMOGLOBIN 29.8 PG (27.0-31.0); MEAN CORPUSCULAR HGB CONC 34.2 g/dL (33.0-36.5); MEAN CORPUSCULAR VOLUME 87.1 FL (78-98); MONOCYTES # (AUTO) 1.3 X10'3 (0-0.9); MONOCYTES % (AUTO) 5.5 % (2-12); NEUTROPHILS # (AUTO) 20.1 X10'3 (1.8-7.7); NEUTROPHILS % (AUTO) 88.4 % (42-75); PLATELET COUNT 281 X10'3 (140-440); RED BLOOD COUNT 4.35 X10'6 (4.70-6.10); WHITE BLOOD COUNT 22.7 X10'3 (4.5-11.0)
[2022-04-08 12:11] LABS: PLATELET ESTIMATE NORMAL; TOTAL CELLS COUNTED 100
--- NOTE | 2022-04-08 15:39 | NUR ---
Student Medication Administration: For this medication-pass time frame, all medication were reviewed, dispensed, administered and documented per hospital policy by Corrine Felix and Kimberly Musa RN.
--- NOTE | 2022-04-08 18:37 | NUR ---
Problems reprioritized. Patient report given, questions answered & plan of care reviewed with KERRI MANNING RN.
--- NOTE | 2022-04-08 18:55 | NUR ---
Student documentation: I have reviewed and agree with all interventions, assessments performed and documented by Betty Felix student nurse, by Herbert Musa RN, instructor.
--- NOTE | 2022-04-08 18:56 | NUR ---
Patient in room ADALID 344. I have received report from THELMA CACERES and had the opportunity to ask questions and assume patient care.
[2022-04-08] MEDS: diatr meglu/diatrizoate 30ml oral sol.-(3 dose) bottle PO SCH (21:43)
[2022-04-08] MEDS: normal saline 1000ml 1,000 ML IV SCH (22:24)
[2022-04-09] MEDS: furosemide 20 MG/2 ML vial IV SCH ×4 (00:12→23:28)
[2022-04-09] MEDS: piperacillin/tazo 3.375gm/50ml 50 ML IV SCH ×4 (00:13→23:28)
[2022-04-09] MEDS: HYDROcodone/acetaminophen 10/325mg tab PO PRN ×5 (05:19→23:29)
[2022-04-09 06:00] VITALS: BP 134/71
--- NOTE | 2022-04-09 06:36 | NUR ---
Problems reprioritized. Patient report given, questions answered & plan of care reviewed with NAM CACERES.
[2022-04-09 07:45] LABS: BASOPHILS % (AUTO) 0.2 % (0-1); EOSINOPHILS # (AUTO) 0.6 X10'3 (0-0.9); EOSINOPHILS % (AUTO) 2.5 % (0-6); HEMATOCRIT 35.5 % (42.0-52.0); LYMPHOCYTES # (AUTO) 0.7 X10'3 (1.1-4.8); MEAN CORPUSCULAR HEMOGLOBIN 29.5 PG (27.0-31.0); MEAN CORPUSCULAR HGB CONC 33.8 g/dL (33.0-36.5); MEAN CORPUSCULAR VOLUME 87.3 FL (78-98); MEAN PLATELET VOLUME 7.4 FL (7.4-10.4); MONOCYTES # (AUTO) 1.6 X10'3 (0-0.9); MONOCYTES % (AUTO) 7.2 % (2-12); NEUTROPHILS # (AUTO) 19.1 X10'3 (1.8-7.7); NEUTROPHILS % (AUTO) 87.1 % (42-75); PLATELET COUNT 271 X10'3 (140-440); RED BLOOD COUNT 4.06 X10'6 (4.70-6.10); RED CELL DISTRIBUTION WIDTH 12.9 % (11.5-14.5)
[2022-04-09 07:58] LABS: ALANINE AMINOTRANSFERASE 75 U/L (12-78); ALBUMIN 1.8 G/DL (3.4-5.0); ALBUMIN/GLOBULIN RATIO 0.4 (1.1-1.5); ALKALINE PHOSPHATASE 506 IU/L (46-116); ANION GAP 7 (8-16); ASPARTATE AMINO TRANSFERASE 93 U/L (10-37); BILIRUBIN,TOTAL 1.5 MG/DL (0.1-1.0); BLOOD UREA NITROGEN 13 MG/DL (7-18); BUN/CREATININE RATIO 11.8 (5.4-32.0); CALCIUM 8.4 MG/DL (8.5-10.1); CHLORIDE 102 MMOL/L (99-107); GLUCOSE 134 MG/DL (70-104); POTASSIUM 3.3 MMOL/L (3.5-5.1); SODIUM 139 MMOL/L (135-145); TOTAL CARBON DIOXIDE 29.7 MMOL/L (24-32); eGFR 67 ML/MIN
[2022-04-09] MEDS: diatr meglu/diatrizoate 30ml oral sol.-(3 dose) bottle PO SCH ×2 (08:13→21:00)
[2022-04-09] MEDS: losartan 50mg tablet PO SCH ×2 (08:19→19:36)
[2022-04-09] MEDS: atorvastatin 20mg tablet PO SCH (08:19)
[2022-04-09] MEDS: aspirin 81mg, enteric-coated 1 TAB TABLET.DR PO SCH (08:19)
[2022-04-09] MEDS: amLODIPine 5mg tablet PO SCH (08:19)
[2022-04-09] MEDS: heparin, porcine 5000 units/ml vial SQ SCH ×2 (08:20→19:36)
[2022-04-09] MEDS ORDERED: iohexol 300mg/ml 100ml inj. ONE (10:08)
[2022-04-09 11:00] VITALS: BP 139/80
[2022-04-09 18:30] VITALS: BP 133/67
--- NOTE | 2022-04-09 18:30 | NUR ---
Patient in room ADALID 344. I have received report from NICKI Oshea and had the opportunity to ask questions and assume patient care. Addendum: 04/09/22 at 1849 by Marely Shaffer RN Amended: Links added.
[2022-04-09 19:53] LABS: LIPASE 59 U/L (73-393)
[2022-04-10] VITALS: BP 127/61
[2022-04-10] MEDS: HYDROcodone/acetaminophen 10/325mg tab PO PRN ×4 (04:51→22:40)
[2022-04-10 06:00] VITALS: BP 126/68
--- NOTE | 2022-04-10 06:30 | NUR ---
Patient in room ADALID 344. I have received report from Lucinda CACERES and had the opportunity to ask questions and assume patient care.
--- NOTE | 2022-04-10 06:34 | NUR ---
Problems reprioritized. Patient report given, questions answered & plan of care reviewed with CRISTIAN Perez. Addendum: 04/10/22 at 0634 by Marely Shaffer RN Amended: Links added.
[2022-04-10 07:28] LABS: BASOPHILS # (AUTO) 0.1 X10'3 (0-0.2); BASOPHILS % (AUTO) 0.4 % (0-1); EOSINOPHILS # (AUTO) 0.6 X10'3 (0-0.9); EOSINOPHILS % (AUTO) 2.9 % (0-6); HEMATOCRIT 34.2 % (42.0-52.0); HEMOGLOBIN 11.3 g/dl (14.0-17.9); LYMPHOCYTES # (AUTO) 0.8 X10'3 (1.1-4.8); LYMPHOCYTES % (AUTO) 4.1 % (21-51); MEAN CORPUSCULAR VOLUME 87.8 FL (78-98); MEAN PLATELET VOLUME 7.5 FL (7.4-10.4); MONOCYTES # (AUTO) 1.6 X10'3 (0-0.9); MONOCYTES % (AUTO) 8.3 % (2-12); NEUTROPHILS # (AUTO) 16.1 X10'3 (1.8-7.7); NEUTROPHILS % (AUTO) 84.3 % (42-75); PLATELET COUNT 311 X10'3 (140-440); RED CELL DISTRIBUTION WIDTH 13.2 % (11.5-14.5); WHITE BLOOD COUNT 19.2 X10'3 (4.5-11.0)
[2022-04-10 07:38] LABS: ALANINE AMINOTRANSFERASE 90 U/L (12-78); ALBUMIN 1.8 G/DL (3.4-5.0); ALBUMIN/GLOBULIN RATIO 0.4 (1.1-1.5); ALKALINE PHOSPHATASE 592 IU/L (46-116); ANION GAP 6 (8-16); ASPARTATE AMINO TRANSFERASE 119 U/L (10-37); BILIRUBIN,TOTAL 1.8 MG/DL (0.1-1.0); BLOOD UREA NITROGEN 12 MG/DL (7-18); BUN/CREATININE RATIO 9.4 (5.4-32.0); CALCIUM 8.3 MG/DL (8.5-10.1); CHLORIDE 100 MMOL/L (99-107); CREATININE 1.28 MG/DL (0.60-1.10); GLUCOSE 131 MG/DL (70-104); MAGNESIUM 1.9 MG/DL (1.5-2.4); PHOSPHORUS 3.5 MG/DL (2.3-4.5); POTASSIUM 3.5 MMOL/L (3.5-5.1); SODIUM 137 MMOL/L (135-145); TOTAL CARBON DIOXIDE 30.9 MMOL/L (24-32); TOTAL PROTEIN 5.9 G/DL (6.4-8.2); eGFR 57 ML/MIN
[2022-04-10] MEDS: furosemide 20 MG/2 ML vial IV SCH ×2 (07:41→17:00)
[2022-04-10] MEDS: piperacillin/tazo 3.375gm/50ml 50 ML IV SCH ×2 (07:42→17:00)
[2022-04-10] MEDS: losartan 50mg tablet PO SCH ×2 (08:25→21:51)
[2022-04-10] MEDS: atorvastatin 20mg tablet PO SCH (08:25)
[2022-04-10] MEDS: aspirin 81mg, enteric-coated 1 TAB TABLET.DR PO SCH (08:26)
[2022-04-10] MEDS: heparin, porcine 5000 units/ml vial SQ SCH ×2 (08:26→21:43)
[2022-04-10] MEDS: amLODIPine 5mg tablet PO SCH (08:26)
[2022-04-10 18:00] VITALS: BP 115/64
--- NOTE | 2022-04-10 18:26 | NUR ---
Problems reprioritized. Patient report given, questions answered & plan of care reviewed with Lou CACERES.
[2022-04-10] MEDS: magnesium hydroxide 30ml (MOM) UD suspension PO PRN (21:56)
[2022-04-10 22:00] VITALS: BP 122/68
[2022-04-11] MEDS: HYDROcodone/acetaminophen 10/325mg tab PO PRN ×2 (05:42→13:44)
[2022-04-11 06:00] VITALS: BP 114/61
--- NOTE | 2022-04-11 06:20 | NUR ---
Problems reprioritized. Patient report given, questions answered & plan of care reviewed with CRISTIAN WILLS.
[2022-04-11 07:04] LABS: BASOPHILS # (AUTO) 0.1 X10'3 (0-0.2); BASOPHILS % (AUTO) 0.7 % (0-1); EOSINOPHILS # (AUTO) 0.5 X10'3 (0-0.9); EOSINOPHILS % (AUTO) 3.4 % (0-6); HEMATOCRIT 33.4 % (42.0-52.0); HEMOGLOBIN 11.3 g/dl (14.0-17.9); LYMPHOCYTES # (AUTO) 0.8 X10'3 (1.1-4.8); LYMPHOCYTES % (AUTO) 5.3 % (21-51); MEAN CORPUSCULAR HEMOGLOBIN 29.8 PG (27.0-31.0); MEAN CORPUSCULAR VOLUME 87.6 FL (78-98); MEAN PLATELET VOLUME 7.3 FL (7.4-10.4); MONOCYTES # (AUTO) 1.2 X10'3 (0-0.9); MONOCYTES % (AUTO) 8.1 % (2-12); NEUTROPHILS # (AUTO) 12.4 X10'3 (1.8-7.7); NEUTROPHILS % (AUTO) 82.5 % (42-75); PLATELET COUNT 347 X10'3 (140-440); RED BLOOD COUNT 3.81 X10'6 (4.70-6.10); RED CELL DISTRIBUTION WIDTH 12.6 % (11.5-14.5)
[2022-04-11 07:09] LABS: ALANINE AMINOTRANSFERASE 103 U/L (12-78); ALBUMIN 1.8 G/DL (3.4-5.0); ALBUMIN/GLOBULIN RATIO 0.4 (1.1-1.5); ALKALINE PHOSPHATASE 679 IU/L (46-116); ANION GAP 5 (8-16); ASPARTATE AMINO TRANSFERASE 135 U/L (10-37); BLOOD UREA NITROGEN 12 MG/DL (7-18); BUN/CREATININE RATIO 9.9 (5.4-32.0); CALCIUM 8.4 MG/DL (8.5-10.1); CHLORIDE 99 MMOL/L (99-107); CREATININE 1.21 MG/DL (0.60-1.10); GLUCOSE 137 MG/DL (70-104); MAGNESIUM 2.1 MG/DL (1.5-2.4); PHOSPHORUS 3.2 MG/DL (2.3-4.5); POTASSIUM 3.6 MMOL/L (3.5-5.1); SODIUM 133 MMOL/L (135-145); TOTAL CARBON DIOXIDE 29.2 MMOL/L (24-32); TOTAL PROTEIN 6.2 G/DL (6.4-8.2); eGFR 60 ML/MIN
[2022-04-11] MEDS: furosemide 20 MG/2 ML vial IV SCH ×2 (07:55)
[2022-04-11] MEDS: losartan 50mg tablet PO SCH (08:08)
[2022-04-11] MEDS: amLODIPine 5mg tablet PO SCH (08:08)
[2022-04-11] MEDS: aspirin 81mg, enteric-coated 1 TAB TABLET.DR PO SCH (08:08)
[2022-04-11] MEDS: atorvastatin 20mg tablet PO SCH (08:08)
[2022-04-11] MEDS: heparin, porcine 5000 units/ml vial SQ SCH (08:09)
[2022-04-11] MEDS: piperacillin/tazo 3.375gm/50ml 50 ML IV SCH ×2 (08:13)
[2022-04-11 08:32] LABS: PLATELET ESTIMATE NORMAL; TOTAL CELLS COUNTED 100
[2022-04-11 11:00] VITALS: BP 134/70
--- NOTE | 2022-04-11 11:36 | NUR ---
Reassessment: Diet advanced to low fat/low CHOL starting lunch 04/10 and pt eating well, documented with average 83% PO intake of first three solid meals. LBM 04/09, large per documentation. No nutrition intervention implemented at this time. Will continue to follow and make recommendations as appropriate. Recommendations: 1) Continue low fat/low CHOL diet 2) Monitor need for ONS/additional protein 3) Routine bowel care; previously constipated 4) Scaled weight this admit; subsequent weekly scaled weights Addendum: 04/11/22 at [address] Amended: Links added.
[2022-04-11] MEDS ORDERED: HYDR-3965 PO (14:09)
[2022-04-11] MEDS ORDERED: AMOX-580 PO (14:11)
[2022-04-11] MEDS ORDERED: LACT1CAP26 PO (14:11)
[2022-04-11] MEDS ORDERED: ALBU6.7H14 INH (14:12)
--- NOTE | 2022-04-11 14:30 | NUR ---
I have reviewed and agree with all interventions, assessments performed and documented by Ana Weaver LVN.
--- NOTE | 2022-04-11 16:20 | NUR ---
pt dc to home in [facility] via private vehicle driven by , pt escorted outside by this nurse. PIV dc prior to dc with no complications, no c/o pain/discomfort/signs of infiltration noted. pt stables removed from midline abdominal incision from procedure on 04/[address] simons instructions. Incision well approximated with no s/sx of infection along with surrounding skin in tact. pt and both verbally expressed understanding of all discharge instructions and education provided to them.
== END 2022-04-11 16:16 | disposition home or self-care (01) | DRG 415 ==
LOC: ER 16:49 → ED HOLD 20:54 → SUR 3N 04-01 11:59
PROVIDERS: ADMIT Internal Medicine; ATTEND Family Medicine
PROC: 0FJ44ZZ Inspection of Gallbladder, Percutaneous Endoscopic Approach (ICD-10-PCS; 2022-04-02)
PROC: 0DNW0ZZ Release Peritoneum, Open Approach (ICD-10-PCS; 2022-04-02)
PROC: 0FT40ZZ Resection of Gallbladder, Open Approach (ICD-10-PCS; principal; 2022-04-02 12:37)
PROC: BW211ZZ Computerized Tomography (CT Scan) of Abdomen and Pelvis using Low Osmolar Contrast (ICD-10-PCS; 2022-04-09)
DX: K85.10 Biliary acute pancreatitis without necrosis or infection (principal); J98.11 Atelectasis; E78.00 Pure hypercholesterolemia, unspecified; I10 Essential (primary) hypertension; K66.0 Peritoneal adhesions (postprocedural) (postinfection); K80.20 Calculus of gallbladder without cholecystitis without obstruction; Z53.31 Laparoscopic surgical procedure converted to open procedure; Z85.47 Personal history of malignant neoplasm of testis; Z79.899 Other long term (current) drug therapy
CPT/HCPCS: 99285; Z7506; Z7508; 36415; 71045; 74018; 74177; 74181; 76700; 80053; 81001; 82948; 83605; 83690; 83735; 84100; 84145; 85007; 85025; 87040; 87081; 93005; 94640; 94760; A4215; A4314; A4615; A4618; A6212; A6223; A6253; A6258; A6402; A6446; A6449; A7000; C9290; G0378; J0131; J0694; J1100; J1644; J1940; J2185; J2250; J2270; J2405; J2543; J2704; J3010; J3490; J7030; J7050; J7120; Q9963; Q9967; S0020

== ENCOUNTER 2022-04-12 22:28 | Inpatient (IN) | payer BC ==
[~2022-04-12] VITALS: Ht 167.6 cm; Wt 92.3 kg
[~2022-04-12 22:28] MED LIST: ALBU6.7H14 INH; AMLO5TAB16 PO; AMOX-580 PO; ASPI81TA52 PO; ATOR40TA72 PO; HYDR-3965 PO; HYDR12.55 PO; LACT1CAP26 PO; LOSA50TA64 PO
--- NOTE | 2022-04-12 23:25 | NUR ---
Dagoberto at bedside.
[2022-04-12] MEDS ORDERED: acetaminophen 325mg tablet PO PRN (23:50)
[2022-04-13] VITALS (15 sets, daily range): BP systolic 120–151; BP diastolic 57–92
[2022-04-13] MEDS ORDERED: ondansetron 4mg rapidly disintigrating tab PO ONE
[2022-04-13] MEDS ORDERED: HYDROcodone/acetaminophen 5mg/325mg tablet PO ONE
--- NOTE | 2022-04-13 00:35 | NUR ---
Patient ambulatory to restroom without assistance or difficulty.
[2022-04-13] MEDS: piperacillin/tazo 3.375gm/50ml 50 ML IV SCH ×4 (00:43→23:20)
[2022-04-13] MEDS: normal saline 1000ml 1,000 ML IV SCH ×3 (00:44→23:15)
[2022-04-13] MEDS: ondansetron/PF 4mg/2ml inj IV PRN ×2 (00:46→08:28)
[2022-04-13] MEDS: morphine 2 MG/ML inj. syringe IV PRN ×4 (00:46→23:08)
--- NOTE | 2022-04-13 01:06 | NUR ---
Patient given eye mask and ear plugs.
[2022-04-13 03:27] LABS: BASOPHILS # (AUTO) 0.1 X10'3 (0-0.2); BASOPHILS % (AUTO) 0.7 % (0-1); EOSINOPHILS # (AUTO) 0.4 X10'3 (0-0.9); EOSINOPHILS % (AUTO) 2.4 % (0-6); HEMATOCRIT 35.2 % (42.0-52.0); HEMOGLOBIN 11.9 g/dl (14.0-17.9); MEAN CORPUSCULAR HEMOGLOBIN 29.9 PG (27.0-31.0); MEAN CORPUSCULAR HGB CONC 33.9 g/dL (33.0-36.5); MEAN CORPUSCULAR VOLUME 88.2 FL (78-98); MEAN PLATELET VOLUME 7.2 FL (7.4-10.4); MONOCYTES # (AUTO) 1.3 X10'3 (0-0.9); MONOCYTES % (AUTO) 8.1 % (2-12); NEUTROPHILS # (AUTO) 13.7 X10'3 (1.8-7.7); NEUTROPHILS % (AUTO) 82.8 % (42-75); PLATELET COUNT 517 X10'3 (140-440); RED BLOOD COUNT 3.99 X10'6 (4.70-6.10); RED CELL DISTRIBUTION WIDTH 13.3 % (11.5-14.5); WHITE BLOOD COUNT 16.6 X10'3 (4.5-11.0)
[2022-04-13 03:47] LABS: ALANINE AMINOTRANSFERASE 271 U/L (12-78); ALBUMIN 1.8 G/DL (3.4-5.0); ANION GAP 9 (8-16); ASPARTATE AMINO TRANSFERASE 424 U/L (10-37); BILIRUBIN,TOTAL 6.8 MG/DL (0.1-1.0); BLOOD UREA NITROGEN 11 MG/DL (7-18); CALCIUM 8.9 MG/DL (8.5-10.1); CHLORIDE 101 MMOL/L (99-107); GLUCOSE 113 MG/DL (70-104); LIPASE < 50 U/L (73-393); SODIUM 136 MMOL/L (135-145); TOTAL CARBON DIOXIDE 25.9 MMOL/L (24-32); eGFR 75 ML/MIN
[2022-04-13 03:48] LABS: ALBUMIN/GLOBULIN RATIO 0.4 (1.1-1.5); ALKALINE PHOSPHATASE 1072 IU/L (46-116); POTASSIUM 4.1 MMOL/L (3.5-5.1); TOTAL PROTEIN 6.3 G/DL (6.4-8.2)
--- NOTE | 2022-04-13 07:17 | NUR ---
Attempted to give report to Surgical floor, nurse not available - passing meds currently.
[2022-04-13 07:20] LABS: APTT 26 SECONDS (22-32)
--- NOTE | 2022-04-13 07:41 | NUR ---
Patient in room ED 7. I have received report from Sofi in the ED and had the opportunity to ask questions and assume patient care.
[2022-04-13] MEDS: losartan 50mg tablet PO SCH ×2 (08:28→23:01)
[2022-04-13] MEDS: amLODIPine 5mg tablet PO SCH (08:28)
[2022-04-13] MEDS ORDERED: fentaNYL/PF 50MCG/1 ML 2ML syringe ONE ×2 (12:14→13:37)
[2022-04-13] MEDS ORDERED: iohexol 300mg/ml 100ml inj. ONE ×2 (12:14→15:33)
[2022-04-13] MEDS ORDERED: diphenhydrAMINE 50 mg/ml inj ONE (12:15)
[2022-04-13] MEDS ORDERED: MIDAZolam 1 MG/ML 5ML VIAL ONE (12:15)
[2022-04-13] MEDS ORDERED: LIDOcaine Viscous 15ml cup ONE (12:15)
[2022-04-13] MEDS ORDERED: glucagon, human recombinant 1mg kit ONE (12:16)
[2022-04-13] MEDS ORDERED: proCHLORperazine 10 MG/2 ml inj ONE (12:19)
--- NOTE | 2022-04-13 12:35 | NUR ---
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 Pt without scaled wt this admit or recent admit earlier this month though reported weights consistent w/ good oral intake recent prior admit following advancement to solids, normal strength, and no edema per EMR. Pt lacks minimum malnutrition criteria at this time. Addendum: 04/13/22 at [address] Amended: Links added.
--- NOTE | 2022-04-13 15:05 | NUR ---
RE Yumiko in 357B, CT is asking what kind of prep you would like. Overnight? Please advise Roxy
[2022-04-13] MEDS ORDERED: diatrozoate meglu/diatrozoate sod (37% iodine) 120ML oral solution PO SCH (15:55)
[2022-04-13] MEDS: diatr meglu/diatrizoate 30ml oral sol.-(3 dose) bottle PO SCH ×3 (16:13→18:25)
[2022-04-13] MEDS ORDERED: AMOX-117 PO (17:39)
[2022-04-13] MEDS ORDERED: HYDR-3965 PO (17:39)
[2022-04-13] MEDS ORDERED: ALBU17AE26 IH (17:40)
[2022-04-13] MEDS ORDERED: TADA20TA43 PO (17:41)
--- NOTE | 2022-04-13 18:17 | NUR ---
Patient's spouse has expressed some concerns about the care patient has been receiving or according to her, lack thereof. Patient's spouse stated she does not feel that enough of the plan of care/communication with the surgeon/hospitalist has taken place. RN has frequented the patient's room, communicated available information to patient, kept apprised of each part of the plan of care within the scope. Unfortunately, the patient's spouse is quite frustrated regardless of how many times information is relayed or explained to her. The spouse was inappropriately unkind to a precepting student, made snide comments to this RN regarding frequency in the patient's room and then was speaking with the charge nurse regarding the same complaints. Reached out to surgeon to explain the interactions with the patient's spouse and her concerns. Surgeon did call and speak with the spouse and the MD that did the ERCP also called and spoke with patient.
--- NOTE | 2022-04-13 18:48 | NUR ---
Problems reprioritized. Patient report given, questions answered & plan of care reviewed with Amarilis.
[2022-04-13] MEDS ORDERED: albuterol 2.5 MG/3 ML nebule NEB PRN (18:50)
--- NOTE | 2022-04-13 19:00 | NUR ---
Received pt. post CT resting quietly in bed sleepy but arousable , answers questions then returns to sleep. Abd large distended but soft. Abd incision dry and intact 3 dressing sites intact. Peripheral IV Left wrist intact NS infusing. Pt. urged to use urinal when necessary and to use call light when necessary for elimination assistance. Spouse at bedside states will be back in am.
[2022-04-13] MEDS ORDERED: pantoprazole 40mg IV 80 MG in normal saline 100ml IV soln 100 ML IV ONE (19:05)
[2022-04-14] VITALS (10 sets, daily range): BP systolic 126–155; BP diastolic 60–76
[2022-04-14] MEDS: morphine 2 MG/ML inj. syringe IV PRN ×4 (04:50→22:17)
[2022-04-14 05:54] LABS: BASOPHILS # (AUTO) 0.1 X10'3 (0-0.2); BASOPHILS % (AUTO) 0.7 % (0-1); EOSINOPHILS # (AUTO) 0.3 X10'3 (0-0.9); EOSINOPHILS % (AUTO) 2.1 % (0-6); HEMATOCRIT 33.4 % (42.0-52.0); HEMOGLOBIN 11.4 g/dl (14.0-17.9); LYMPHOCYTES # (AUTO) 0.8 X10'3 (1.1-4.8); LYMPHOCYTES % (AUTO) 5.4 % (21-51); MEAN CORPUSCULAR HEMOGLOBIN 30.1 PG (27.0-31.0); MEAN CORPUSCULAR HGB CONC 34.1 g/dL (33.0-36.5); MEAN CORPUSCULAR VOLUME 88.3 FL (78-98); MONOCYTES # (AUTO) 1.1 X10'3 (0-0.9); NEUTROPHILS # (AUTO) 13.1 X10'3 (1.8-7.7); NEUTROPHILS % (AUTO) 84.8 % (42-75); PLATELET COUNT 534 X10'3 (140-440); RED BLOOD COUNT 3.79 X10'6 (4.70-6.10); RED CELL DISTRIBUTION WIDTH 13.6 % (11.5-14.5); WHITE BLOOD COUNT 15.4 X10'3 (4.5-11.0)
[2022-04-14 06:11] LABS: ALANINE AMINOTRANSFERASE 266 U/L (12-78); ALBUMIN 1.6 G/DL (3.4-5.0); ALBUMIN/GLOBULIN RATIO 0.4 (1.1-1.5); ANION GAP 7 (8-16); ASPARTATE AMINO TRANSFERASE 328 U/L (10-37); BILIRUBIN,TOTAL 7.2 MG/DL (0.1-1.0); BLOOD UREA NITROGEN 10 MG/DL (7-18); BUN/CREATININE RATIO 9.8 (5.4-32.0); CALCIUM 8.9 MG/DL (8.5-10.1); CHLORIDE 104 MMOL/L (99-107); CREATININE 1.02 MG/DL (0.60-1.10); GLUCOSE 115 MG/DL (70-104); POTASSIUM 4.3 MMOL/L (3.5-5.1); SODIUM 137 MMOL/L (135-145); TOTAL CARBON DIOXIDE 25.7 MMOL/L (24-32); TOTAL PROTEIN 6.1 G/DL (6.4-8.2); eGFR 74 ML/MIN
[2022-04-14 06:14] LABS: ALKALINE PHOSPHATASE 1264 IU/L (46-116)
--- NOTE | 2022-04-14 06:57 | NUR ---
Patient in room ADALID 357. I have received report from Ann Marie RN and had the opportunity to ask questions and assume patient care.
[2022-04-14] MEDS: losartan 50mg tablet PO SCH ×2 (08:41→20:13)
[2022-04-14] MEDS: amLODIPine 5mg tablet PO SCH (08:41)
[2022-04-14] MEDS: heparin, porcine 5000 units/ml vial SQ SCH ×2 (08:42→20:14)
[2022-04-14] MEDS: piperacillin/tazo 3.375gm/50ml 50 ML IV SCH ×2 (08:42→17:24)
[2022-04-14] MEDS: pantoprazole 40mg Tablet.DR PO SCH (08:44)
[2022-04-14] MEDS ORDERED: fentaNYL/PF 50MCG/1 ML 2ML syringe IV PRN ×2 (13:10)
[2022-04-14] MEDS ORDERED: labetalol 20mg/4ml (5mg/ml) syringe IV PRN (13:10)
[2022-04-14] MEDS ORDERED: morphine 4 MG/ML inj SYRINge IV PRN (13:10)
[2022-04-14] MEDS ORDERED: ringers solution, lacted 1,000 ML IV SCH (13:10)
[2022-04-14] MEDS ORDERED: ondansetron/PF 4mg/2ml inj IV PRN (13:10)
[2022-04-14] MEDS ORDERED: morphine 2 MG/ML inj. syringe IV PRN (13:10)
[2022-04-14] MEDS ORDERED: hydrALAZINE 20mg/ml inj. IV PRN (13:10)
[2022-04-14] MEDS ORDERED: fentaNYL/PF 50MCG/1 ML 2ML syringe ONE (13:17)
[2022-04-14] MEDS ORDERED: rocuronium 10mg/ml inj IV ONE (13:18)
[2022-04-14] MEDS ORDERED: propofol inj 20 ML IV ONE (13:18)
[2022-04-14] MEDS ORDERED: succinylcholine 20mg/ml inj IV ONE (13:18)
[2022-04-14] MEDS ORDERED: midazolam 1 mg/ML 2ml injection ONE (13:18)
[2022-04-14] MEDS ORDERED: glucagon, human recombinant 1mg kit ONE (13:20)
[2022-04-14] MEDS ORDERED: iohexol 300mg/ml 100ml inj. ONE (13:20)
[2022-04-14] MEDS ORDERED: LIDOcaine 1%/PF 5ML 10 MG/ML VIAL ONE (13:20)
[2022-04-14] MEDS ORDERED: desflurane 240ml liquid inh. IH ONE (13:45)
[2022-04-14] MEDS ORDERED: labetalol 20mg/4ml (5mg/ml) syringe IV ONE (14:17)
--- NOTE | 2022-04-14 14:59 | NUR ---
Received from OR via MATTHEW, accompanied by Anesthesiologist and report given by VEENA Anesthesiologist. PATIENT WAKING UP, DENIES PAIN, V/S WNL, PIV 20G RIGHT WRIST. WILL CONTINUE TO MONITOR. Addendum: 04/14/22 at 1513 by Ac Godfrey RN Amended: Links added.
--- NOTE | 2022-04-14 15:39 | NUR ---
RECEIVED PATIENT BACK FROM SURGERY. PATIENT SLEEPY, ALERT AND ORIENTED X4.
--- NOTE | 2022-04-14 15:39 | NUR ---
PATIENT HAS MET ALL CRITERIA FOR TRANSFER TO THE SURGICAL FLOOR. VSS. DRESSINGS INTACT. BED LOW, CALL LIGHT PRESENT AND 2 RAILS UP. RN PRESENT TO ACCEPT CARE OF PATIENT AND REPORT HAS BEEN CALLED. ALL QUESTIONS ANSWERED TO ACCEPTING RN Addendum: 04/14/22 at 1548 by Ac Godfrey RN Amended: Links added.
--- NOTE | 2022-04-14 17:11 | NUR ---
page sent to Cassidy in case management per Dr. Mcconnell referring pt to [facility].
[2022-04-14] MEDS: normal saline 1000ml 1,000 ML IV SCH (17:17)
[2022-04-14] MEDS ORDERED: HYDROcodone/acetaminophen 10/325mg tab PO ONE (17:35)
--- NOTE | 2022-04-14 17:48 | NUR ---
patient medicated x2 for abdominal pain see emar with good effect. Went to OR for ERCP under GA, see report from Dr espinoza. Resting comfortably at this time.
--- NOTE | 2022-04-14 18:03 | NUR ---
Problems reprioritized. Patient report given, questions answered & plan of care reviewed with faustina CACERES.
[2022-04-15] MEDS: piperacillin/tazo 3.375gm/50ml 50 ML IV SCH ×3 (00:17→15:36)
[2022-04-15] MEDS: morphine 2 MG/ML inj. syringe IV PRN ×5 (02:30→21:59)
[2022-04-15 06:00] VITALS: BP 140/65
--- NOTE | 2022-04-15 07:11 | NUR ---
Patient in room ADALID 357. I have received report from Heidi CACERES and had the opportunity to ask questions and assume patient care.
[2022-04-15] MEDS: pantoprazole 40mg Tablet.DR PO SCH (07:44)
[2022-04-15] MEDS: amLODIPine 5mg tablet PO SCH (08:19)
[2022-04-15] MEDS: losartan 50mg tablet PO SCH ×2 (08:19→21:54)
[2022-04-15] MEDS: heparin, porcine 5000 units/ml vial SQ SCH ×2 (08:20→21:55)
[2022-04-15 08:28] LABS: BASOPHILS # (AUTO) 0.1 X10'3 (0-0.2); EOSINOPHILS # (AUTO) 0.3 X10'3 (0-0.9); MEAN CORPUSCULAR VOLUME 88.6 FL (78-98); MONOCYTES # (AUTO) 0.6 X10'3 (0-0.9); NEUTROPHILS # (AUTO) 10.4 X10'3 (1.8-7.7); WHITE BLOOD COUNT 12.1 X10'3 (4.5-11.0)
[2022-04-15 08:31] LABS: EOSINOPHILS % (AUTO) 2.5 % (0-6); HEMATOCRIT 31.3 % (42.0-52.0); HEMOGLOBIN 10.8 g/dl (14.0-17.9); LYMPHOCYTES # (AUTO) 0.7 X10'3 (1.1-4.8); LYMPHOCYTES % (AUTO) 5.5 % (21-51); MEAN CORPUSCULAR HEMOGLOBIN 30.6 PG (27.0-31.0); MEAN CORPUSCULAR HGB CONC 34.5 g/dL (33.0-36.5); MEAN PLATELET VOLUME 6.8 FL (7.4-10.4); MONOCYTES % (AUTO) 4.7 % (2-12); NEUTROPHILS % (AUTO) 86.3 % (42-75); PLATELET COUNT 595 X10'3 (140-440); RED BLOOD COUNT 3.53 X10'6 (4.70-6.10); RED CELL DISTRIBUTION WIDTH 13.5 % (11.5-14.5)
--- NOTE | 2022-04-15 08:31 | NUR ---
Student Medication Administration: For this medication-pass time frame, all medication were reviewed, dispensed, administered and documented per hospital policy by Manjeet Linares with instroctor Tom Musa RN MSN.
[2022-04-15 08:53] LABS: ALANINE AMINOTRANSFERASE 156 U/L (12-78); ALBUMIN 1.6 G/DL (3.4-5.0); ANION GAP 6 (8-16); ASPARTATE AMINO TRANSFERASE 119 U/L (10-37); BILIRUBIN,TOTAL 5.1 MG/DL (0.1-1.0); BLOOD UREA NITROGEN 11 MG/DL (7-18); BUN/CREATININE RATIO 10.6 (5.4-32.0); CALCIUM 8.4 MG/DL (8.5-10.1); CHLORIDE 103 MMOL/L (99-107); CREATININE 1.04 MG/DL (0.60-1.10); GLUCOSE 129 MG/DL (70-104); POTASSIUM 3.7 MMOL/L (3.5-5.1); SODIUM 136 MMOL/L (135-145); TOTAL CARBON DIOXIDE 26.7 MMOL/L (24-32); eGFR 72 ML/MIN
[2022-04-15 09:18] LABS: ALKALINE PHOSPHATASE 999 IU/L (46-116)
[2022-04-15 09:22] LABS: ALBUMIN/GLOBULIN RATIO 0.4 (1.1-1.5); TOTAL PROTEIN 5.8 G/DL (6.4-8.2)
[2022-04-15 10:00] VITALS: BP 143/73
--- NOTE | 2022-04-15 14:22 | NUR ---
PARTS RUNNER documentation: I have reviewed and agree with all interventions, assessments performed and documented by Ami Issa LVN.
--- NOTE | 2022-04-15 15:20 | NUR ---
spoke with Marcelina CACERESsecurity management specialist at 1130 informed her of pt needing to be referred to [facility] she stated she would do that. Pt also has X2 ronn located on the right ABD. Spoke With Hospitalist she approved for removal of the ronn and for pt to receive a shower.
--- NOTE | 2022-04-15 15:40 | NUR ---
Student Medication Administration: For this medication-pass time frame, all medication were reviewed, dispensed, administered and documented per hospital policy by Manjeet Linares with Tom Musa RN MSN.
--- NOTE | 2022-04-15 15:45 | NUR ---
Removal of two ronn in the mid lateral right abd. Patient samreen well with no complaints. no bleeding. Manjeet Linares with Tom Musa RN MSN
--- NOTE | 2022-04-15 18:10 | NUR ---
Student documentation: I have reviewed and agree with all interventions, assessments performed and documented by Moises Linares student nurse, by Herbert Musa RN, Instructor.
--- NOTE | 2022-04-15 18:21 | NUR ---
Problems reprioritized. Patient report given, questions answered & plan of care reviewed with FABRICIO CACERES.
[2022-04-15 18:30] VITALS: BP 145/77
--- NOTE | 2022-04-15 18:30 | NUR ---
Patient in room ADALID 357. I have received report from PIERCE CACERES and had the opportunity to ask questions and assume patient care.
[2022-04-15] MEDS: normal saline 1000ml 1,000 ML IV SCH (21:50)
[2022-04-15 22:00] VITALS: BP 150/64
[2022-04-16] MEDS: piperacillin/tazo 3.375gm/50ml 50 ML IV SCH ×3 (00:32→16:11)
[2022-04-16] MEDS: morphine 2 MG/ML inj. syringe IV PRN ×3 (04:55→20:54)
[2022-04-16 06:00] VITALS: BP 138/76
[2022-04-16 06:07] LABS: EOSINOPHILS # (AUTO) 0.3 X10'3 (0-0.9); MEAN CORPUSCULAR HGB CONC 32.8 g/dL (33.0-36.5); MEAN PLATELET VOLUME 7.5 FL (7.4-10.4)
[2022-04-16 06:09] LABS: BASOPHILS # (AUTO) 0.2 X10'3 (0-0.2); BASOPHILS % (AUTO) 1.2 % (0-1); EOSINOPHILS % (AUTO) 2.1 % (0-6); HEMATOCRIT 31.8 % (42.0-52.0); HEMOGLOBIN 10.4 g/dl (14.0-17.9); LYMPHOCYTES % (AUTO) 7.6 % (21-51); MEAN CORPUSCULAR HEMOGLOBIN 29.2 PG (27.0-31.0); MEAN CORPUSCULAR VOLUME 88.9 FL (78-98); MONOCYTES # (AUTO) 0.6 X10'3 (0-0.9); MONOCYTES % (AUTO) 4.5 % (2-12); NEUTROPHILS # (AUTO) 11.3 X10'3 (1.8-7.7); NEUTROPHILS % (AUTO) 84.6 % (42-75); PLATELET COUNT 623 X10'3 (140-440); RED BLOOD COUNT 3.57 X10'6 (4.70-6.10); RED CELL DISTRIBUTION WIDTH 13.7 % (11.5-14.5); WHITE BLOOD COUNT 13.4 X10'3 (4.5-11.0)
--- NOTE | 2022-04-16 06:24 | NUR ---
Problems reprioritized. Patient report given, questions answered & plan of care reviewed with ELMA CACERES.
[2022-04-16 06:29] LABS: ALANINE AMINOTRANSFERASE 191 U/L (12-78); ALBUMIN 1.6 G/DL (3.4-5.0); ANION GAP 10 (8-16); ASPARTATE AMINO TRANSFERASE 237 U/L (10-37); BILIRUBIN,TOTAL 8.6 MG/DL (0.1-1.0); BLOOD UREA NITROGEN 8 MG/DL (7-18); BUN/CREATININE RATIO 9.1 (5.4-32.0); CALCIUM 8.4 MG/DL (8.5-10.1); CHLORIDE 102 MMOL/L (99-107); CREATININE 0.88 MG/DL (0.60-1.10); GLUCOSE 98 MG/DL (70-104); SODIUM 135 MMOL/L (135-145); TOTAL CARBON DIOXIDE 23.1 MMOL/L (24-32); eGFR 87 ML/MIN
[2022-04-16 06:34] LABS: ALBUMIN/GLOBULIN RATIO 0.4 (1.1-1.5); TOTAL PROTEIN 5.6 G/DL (6.4-8.2)
[2022-04-16 06:36] LABS: ALKALINE PHOSPHATASE 1182 IU/L (46-116)
[2022-04-16] MEDS: pantoprazole 40mg Tablet.DR PO SCH ×2 (08:40→19:20)
[2022-04-16] MEDS: losartan 50mg tablet PO SCH ×2 (08:40→19:20)
[2022-04-16] MEDS: amLODIPine 5mg tablet PO SCH (08:41)
[2022-04-16] MEDS: heparin, porcine 5000 units/ml vial SQ SCH ×2 (08:42→19:20)
[2022-04-16 10:00] VITALS: BP 141/80
--- NOTE | 2022-04-16 15:08 | NUR ---
FIREPOT OPERATOR AND TENDER documentation: I have reviewed and agree with all interventions, assessments performed and documented by Ana Morse LVN.
[2022-04-16 19:00] VITALS: BP 151/79
[2022-04-16] MEDS: normal saline 1000ml 1,000 ML IV SCH (19:21)
[2022-04-16] MEDS: ondansetron/PF 4mg/2ml inj IV PRN (20:54)
[2022-04-17] MEDS: piperacillin/tazo 3.375gm/50ml 50 ML IV SCH ×3 (00:17→15:09)
[2022-04-17] MEDS: morphine 2 MG/ML inj. syringe IV PRN ×4 (02:15→21:41)
[2022-04-17] MEDS: ondansetron/PF 4mg/2ml inj IV PRN (04:20)
--- NOTE | 2022-04-17 05:25 | NUR ---
Pt. is awake alert oriented skin jaundiced c/o mid abd pain medicated for pain x 2 overnight. Pt. has a peripheral IV with NS infusing. Pt. is ambulatory able to walk around the unit gaits steady stable. Able to use BSC with minimal assistance. Pt. is awaiting placement for procedure.
[2022-04-17 06:00] VITALS: BP 131/72
[2022-04-17 06:30] LABS: BASOPHILS # (AUTO) 0.2 X10'3 (0-0.2); BASOPHILS % (AUTO) 1.5 % (0-1); EOSINOPHILS # (AUTO) 0.3 X10'3 (0-0.9); EOSINOPHILS % (AUTO) 2.5 % (0-6); HEMATOCRIT 29.4 % (42.0-52.0); HEMOGLOBIN 9.8 g/dl (14.0-17.9); LYMPHOCYTES # (AUTO) 0.8 X10'3 (1.1-4.8); LYMPHOCYTES % (AUTO) 5.9 % (21-51); MEAN CORPUSCULAR HEMOGLOBIN 29.4 PG (27.0-31.0); MEAN CORPUSCULAR HGB CONC 33.4 g/dL (33.0-36.5); MEAN CORPUSCULAR VOLUME 88.2 FL (78-98); MEAN PLATELET VOLUME 7.7 FL (7.4-10.4); MONOCYTES # (AUTO) 0.6 X10'3 (0-0.9); MONOCYTES % (AUTO) 4.5 % (2-12); NEUTROPHILS # (AUTO) 11.3 X10'3 (1.8-7.7); NEUTROPHILS % (AUTO) 85.6 % (42-75); PLATELET COUNT 575 X10'3 (140-440); RED BLOOD COUNT 3.33 X10'6 (4.70-6.10); RED CELL DISTRIBUTION WIDTH 13.8 % (11.5-14.5); WHITE BLOOD COUNT 13.2 X10'3 (4.5-11.0)
[2022-04-17 07:17] LABS: ALANINE AMINOTRANSFERASE 159 U/L (12-78); ALBUMIN 1.6 G/DL (3.4-5.0); ANION GAP 8 (8-16); ASPARTATE AMINO TRANSFERASE 134 U/L (10-37); BILIRUBIN,TOTAL 6.3 MG/DL (0.1-1.0); BLOOD UREA NITROGEN 10 MG/DL (7-18); BUN/CREATININE RATIO 11.1 (5.4-32.0); CALCIUM 8.4 MG/DL (8.5-10.1); CHLORIDE 102 MMOL/L (99-107); GLUCOSE 109 MG/DL (70-104); LIPASE 80 U/L (73-393); SODIUM 133 MMOL/L (135-145); TOTAL CARBON DIOXIDE 23.5 MMOL/L (24-32); eGFR 85 ML/MIN
[2022-04-17 07:42] LABS: PLATELET ESTIMATE INCREASED; TOTAL CELLS COUNTED 100
[2022-04-17 07:45] LABS: ALBUMIN/GLOBULIN RATIO 0.4 (1.1-1.5); ALKALINE PHOSPHATASE 1086 IU/L (46-116); TOTAL PROTEIN 5.6 G/DL (6.4-8.2)
[2022-04-17] MEDS: losartan 50mg tablet PO SCH ×2 (08:23→20:28)
[2022-04-17] MEDS: pantoprazole 40mg Tablet.DR PO SCH ×2 (08:23→20:28)
[2022-04-17] MEDS: amLODIPine 5mg tablet PO SCH (08:23)
[2022-04-17] MEDS: heparin, porcine 5000 units/ml vial SQ SCH ×2 (08:23→20:28)
[2022-04-17] MEDS: normal saline 1000ml 1,000 ML IV SCH ×2 (08:24→17:42)
--- NOTE | 2022-04-17 18:25 | NUR ---
Problems reprioritized. Patient report given, questions answered & plan of care reviewed with KATHLEEN CACERES.
[2022-04-17 18:30] VITALS: BP 137/70
--- NOTE | 2022-04-17 18:30 | NUR ---
Patient in room ADALID 357. I have received report from CRISTIAN WILLS and had the opportunity to ask questions and assume patient care. Addendum: 04/18/22 at 0203 by Marely Shaffer RN Amended: Links added.
[2022-04-17 21:51] VITALS: BP 137/63
[2022-04-18] MEDS: piperacillin/tazo 3.375gm/50ml 50 ML IV SCH ×3 (00:32→15:13)
[2022-04-18] MEDS: normal saline 1000ml 1,000 ML IV SCH ×2 (04:21→14:14)
[2022-04-18 05:00] VITALS: BP 105/69
[2022-04-18] MEDS: ondansetron/PF 4mg/2ml inj IV PRN ×2 (05:30→22:22)
--- NOTE | 2022-04-18 05:34 | NUR ---
up oob states had bm, feeling "bloated" and nauseated. Newton mason, pt up and sitting in recliner Addendum: 04/18/22 at 0535 by Marely Shaffer RN Amended: Links added.
--- NOTE | 2022-04-18 06:10 | NUR ---
Problems reprioritized. Patient report given, questions answered & plan of care reviewed with NICKI Perez. Addendum: 04/18/22 at 0645 by Marely Shaffer RN Amended: Links added.
[2022-04-18] MEDS: heparin, porcine 5000 units/ml vial SQ SCH ×2 (08:15→22:13)
[2022-04-18] MEDS: pantoprazole 40mg Tablet.DR PO SCH ×2 (08:15→22:13)
[2022-04-18] MEDS: amLODIPine 5mg tablet PO SCH (08:15)
[2022-04-18] MEDS: losartan 50mg tablet PO SCH ×2 (08:15→22:14)
[2022-04-18 11:00] VITALS: BP 172/66
[2022-04-18 12:58] LABS: BASOPHILS # (AUTO) 0.1 X10'3 (0-0.2); HEMOGLOBIN 10.4 g/dl (14.0-17.9); WHITE BLOOD COUNT 10.3 X10'3 (4.5-11.0)
[2022-04-18 13:00] LABS: EOSINOPHILS # (AUTO) 0.2 X10'3 (0-0.9); EOSINOPHILS % (AUTO) 2.3 % (0-6); HEMATOCRIT 31.3 % (42.0-52.0); LYMPHOCYTES % (AUTO) 9.9 % (21-51); MEAN CORPUSCULAR HEMOGLOBIN 29.5 PG (27.0-31.0); MEAN CORPUSCULAR HGB CONC 33.1 g/dL (33.0-36.5); MEAN PLATELET VOLUME 7.2 FL (7.4-10.4); MONOCYTES # (AUTO) 0.6 X10'3 (0-0.9); MONOCYTES % (AUTO) 5.5 % (2-12); NEUTROPHILS # (AUTO) 8.4 X10'3 (1.8-7.7); NEUTROPHILS % (AUTO) 81.3 % (42-75); PLATELET COUNT 635 X10'3 (140-440); RED BLOOD COUNT 3.52 X10'6 (4.70-6.10)
[2022-04-18 13:18] LABS: ALANINE AMINOTRANSFERASE 123 U/L (12-78); ALBUMIN 1.8 G/DL (3.4-5.0); ALBUMIN/GLOBULIN RATIO 0.4 (1.1-1.5); ANION GAP 6 (8-16); ASPARTATE AMINO TRANSFERASE 74 U/L (10-37); BILIRUBIN,TOTAL 3.5 MG/DL (0.1-1.0); BLOOD UREA NITROGEN 8 MG/DL (7-18); CALCIUM 8.8 MG/DL (8.5-10.1); CHLORIDE 103 MMOL/L (99-107); CREATININE 0.89 MG/DL (0.60-1.10); GLUCOSE 99 MG/DL (70-104); SODIUM 135 MMOL/L (135-145); TOTAL CARBON DIOXIDE 25.7 MMOL/L (24-32); TOTAL PROTEIN 6.3 G/DL (6.4-8.2); eGFR 86 ML/MIN
[2022-04-18 13:21] LABS: ALKALINE PHOSPHATASE 1016 IU/L (46-116); POTASSIUM 3.8 MMOL/L (3.5-5.1)
[2022-04-18 13:54] LABS: LARGE PLATELETS FEW; PLATELET ESTIMATE INCREASED
--- NOTE | 2022-04-18 15:36 | NUR ---
Initial: Pt admit DX biliary obstruction s/p recent open cholecystectomy, transaminitis secondary to CBD stone, and HTN pending transfer to [facility] for CBD stone per EMR. Pt advanced to full liquids diet though refusing vs 0-25% most meals w/ persistent nausea complaining of abdominal distention today per EMR. PO 50-75% initial clear liquids though given PO decline and restrictive diet pt not meeting nutrition needs. ONS likely not appropriate at this time given meal refusals/current GI symptoms. LBM 04/18 receiving daily zofran per EMR. If PO meal refusals persist w/ functional gut may require nutrition support to optimize nutrition status. Will monitor for further PO acceptance and nutrition intervention needs this admit. Rec: 1. continue full liquids diet per MD; advance to low-fat as medically indicated 2. monitor for PO acceptance and appropriateness for ONS 3. IF continued meals refusal consider nutrition support to optimize nutrition status 4. routine anti-nausea regimen per physician 5. bowel care per rx 6. scaled wt this admit; subsequent weekly wts Addendum: 04/18/22 at [address] Amended: Links added.
[2022-04-18 18:30] VITALS: BP 137/70
--- NOTE | 2022-04-18 18:30 | NUR ---
Patient in room ADALID 357. I have received report from CRISTIAN Perez and had the opportunity to ask questions and assume patient care. Addendum: 04/19/22 at 0452 by Marely Shaffer RN Amended: Links added.
--- NOTE | 2022-04-18 18:39 | NUR ---
Problems reprioritized. Patient report given, questions answered & plan of care reviewed with Katherine ordoñez.
--- NOTE | 2022-04-18 19:07 | NUR ---
Agreed with NEEDLE SETTER assessment, added a few of my own findings. Addendum: 04/18/22 at 1907 by Ivana Maurice RN Amended: Links added.
--- NOTE | 2022-04-18 20:00 | NUR ---
Pt amb in halls, meds not given yet Addendum: 04/18/22 at 2102 by Marely Shaffer RN Amended: Links added.
--- NOTE | 2022-04-18 20:30 | NUR ---
Unable to give meds, pt in shower, will give when pt back in room Addendum: 04/18/22 at 2102 by Marely Shaffer RN Amended: Links added.
[2022-04-18 22:00] VITALS: BP 139/69
[2022-04-19] MEDS: piperacillin/tazo 3.375gm/50ml 50 ML IV SCH ×4 (00:14→22:52)
[2022-04-19] MEDS: normal saline 1000ml 1,000 ML IV SCH ×3 (00:15→20:14)
[2022-04-19 06:00] VITALS: BP 119/68
--- NOTE | 2022-04-19 06:15 | NUR ---
Problems reprioritized. Patient report given, questions answered & plan of care reviewed with Marifer CACERES.
--- NOTE | 2022-04-19 06:17 | NUR ---
Problems reprioritized. Patient report given, questions answered & plan of care reviewed with CRISTIAN Cooley. Addendum: 04/19/22 at 0617 by Marely Shaffer RN Amended: Links added.
--- NOTE | 2022-04-19 06:27 | NUR ---
DAYSCLEVELAND ASSOCIATE GENETICS PROFESSOR DONE. Addendum: 04/19/22 at 0628 by Marely Shaffer RN Amended: Links added.
--- NOTE | 2022-04-19 06:30 | NUR ---
Patient in room ADALID 357. I have received report from Ivana CACERES and had the opportunity to ask questions and assume patient care.
--- NOTE | 2022-04-19 06:30 | NUR ---
Patient in room ADALID 357. I have received report from Ivana CACERES and had the opportunity to ask questions and assume patient care.
[2022-04-19 06:44] LABS: BASOPHILS # (AUTO) 0.1 X10'3 (0-0.2); BASOPHILS % (AUTO) 1.1 % (0-1); EOSINOPHILS # (AUTO) 0.3 X10'3 (0-0.9); EOSINOPHILS % (AUTO) 2.9 % (0-6); HEMATOCRIT 29.4 % (42.0-52.0); LYMPHOCYTES # (AUTO) 0.8 X10'3 (1.1-4.8); LYMPHOCYTES % (AUTO) 8.7 % (21-51); MEAN CORPUSCULAR HEMOGLOBIN 30.4 PG (27.0-31.0); MEAN CORPUSCULAR HGB CONC 33.9 g/dL (33.0-36.5); MEAN CORPUSCULAR VOLUME 89.8 FL (78-98); MEAN PLATELET VOLUME 7.1 FL (7.4-10.4); MONOCYTES # (AUTO) 0.6 X10'3 (0-0.9); MONOCYTES % (AUTO) 6.5 % (2-12); NEUTROPHILS # (AUTO) 7.6 X10'3 (1.8-7.7); NEUTROPHILS % (AUTO) 80.8 % (42-75); PLATELET COUNT 540 X10'3 (140-440); RED BLOOD COUNT 3.27 X10'6 (4.70-6.10); WHITE BLOOD COUNT 9.4 X10'3 (4.5-11.0)
[2022-04-19 07:00] LABS: ALANINE AMINOTRANSFERASE 92 U/L (12-78); ALBUMIN 1.7 G/DL (3.4-5.0); ALBUMIN/GLOBULIN RATIO 0.4 (1.1-1.5); ALKALINE PHOSPHATASE 873 IU/L (46-116); ANION GAP 8 (8-16); ASPARTATE AMINO TRANSFERASE 63 U/L (10-37); BILIRUBIN,TOTAL 2.6 MG/DL (0.1-1.0); BLOOD UREA NITROGEN 7 MG/DL (7-18); CALCIUM 8.4 MG/DL (8.5-10.1); CHLORIDE 104 MMOL/L (99-107); CREATININE 0.87 MG/DL (0.60-1.10); GLUCOSE 103 MG/DL (70-104); POTASSIUM 3.7 MMOL/L (3.5-5.1); SODIUM 135 MMOL/L (135-145); TOTAL CARBON DIOXIDE 23.4 MMOL/L (24-32); TOTAL PROTEIN 5.7 G/DL (6.4-8.2); eGFR 88 ML/MIN
[2022-04-19] MEDS: pantoprazole 40mg Tablet.DR PO SCH ×2 (08:16→20:41)
[2022-04-19] MEDS: amLODIPine 5mg tablet PO SCH (08:16)
[2022-04-19] MEDS: losartan 50mg tablet PO SCH ×2 (08:17→20:41)
[2022-04-19] MEDS: heparin, porcine 5000 units/ml vial SQ SCH ×2 (08:21→20:42)
[2022-04-19 11:00] VITALS: BP 127/67
[2022-04-19 18:00] VITALS: BP 126/66
[2022-04-19 20:17] VITALS: BP 136/66
[2022-04-19 22:21] VITALS: BP 136/69
--- NOTE | 2022-04-19 23:24 | NUR ---
Student documentation: I have reviewed interventions, assessments performed and documented by Beth MCQUEEN [facility].
--- NOTE | 2022-04-19 23:25 | NUR ---
Student Medication Administration: For this medication-pass time frame, all medication were reviewed, dispensed, administered and documented per hospital policy by [facility].
[2022-04-20 06:00] VITALS: BP 133/73
[2022-04-20] MEDS: normal saline 1000ml 1,000 ML IV SCH ×3 (06:14→22:45)
--- NOTE | 2022-04-20 06:15 | NUR ---
Patient in room [facility]. I have received report from Marifer CACERES and had the opportunity to ask questions and assume patient care.
--- NOTE | 2022-04-20 06:25 | NUR ---
Problems reprioritized. Patient report given, questions answered & plan of care reviewed with NICKI PRAHTER.
[2022-04-20] MEDS: piperacillin/tazo 3.375gm/50ml 50 ML IV SCH ×2 (08:35→16:26)
[2022-04-20] MEDS: losartan 50mg tablet PO SCH ×2 (08:44→20:48)
[2022-04-20] MEDS: pantoprazole 40mg Tablet.DR PO SCH ×2 (08:44→20:47)
[2022-04-20] MEDS: amLODIPine 5mg tablet PO SCH (08:45)
[2022-04-20] MEDS: heparin, porcine 5000 units/ml vial SQ SCH ×2 (08:45→20:50)
[2022-04-20 09:48] LABS: BASOPHILS # (AUTO) 0.1 X10'3 (0-0.2); BASOPHILS % (AUTO) 1.2 % (0-1); EOSINOPHILS # (AUTO) 0.3 X10'3 (0-0.9); EOSINOPHILS % (AUTO) 3.3 % (0-6); HEMATOCRIT 31.6 % (42.0-52.0); HEMOGLOBIN 10.5 g/dl (14.0-17.9); LYMPHOCYTES # (AUTO) 0.8 X10'3 (1.1-4.8); LYMPHOCYTES % (AUTO) 8.1 % (21-51); MEAN CORPUSCULAR HEMOGLOBIN 30.2 PG (27.0-31.0); MEAN CORPUSCULAR HGB CONC 33.3 g/dL (33.0-36.5); MEAN CORPUSCULAR VOLUME 90.8 FL (78-98); MEAN PLATELET VOLUME 6.8 FL (7.4-10.4); MONOCYTES # (AUTO) 0.7 X10'3 (0-0.9); MONOCYTES % (AUTO) 6.9 % (2-12); NEUTROPHILS # (AUTO) 7.8 X10'3 (1.8-7.7); NEUTROPHILS % (AUTO) 80.5 % (42-75); PLATELET COUNT 537 X10'3 (140-440); RED BLOOD COUNT 3.48 X10'6 (4.70-6.10); RED CELL DISTRIBUTION WIDTH 14.3 % (11.5-14.5); WHITE BLOOD COUNT 9.7 X10'3 (4.5-11.0)
[2022-04-20 10:00] VITALS: BP 138/64
--- NOTE | 2022-04-20 10:00 | NUR ---
Patient was advance from full liquid diet to a regular diet. Patient was able to tolerate a few bites of his regular diet breakfast this morning. Patient states that he was full and wasn't able to eat more, denies nausea at this time. Addendum: 04/20/22 at 1155 by Cecilia Sotelo LVN Amended: Links added.
--- NOTE | 2022-04-20 10:13 | NUR ---
Called Dr. Oden about patient lower abd surgical site is open and draining yellow drainage. I advised him that wound care was consulted. Doctor said he will be to the floor to see him.
[2022-04-20 10:42] LABS: ALANINE AMINOTRANSFERASE 100 U/L (12-78); ALBUMIN 1.9 G/DL (3.4-5.0); ALBUMIN/GLOBULIN RATIO 0.5 (1.1-1.5); ALKALINE PHOSPHATASE 850 IU/L (46-116); ASPARTATE AMINO TRANSFERASE 74 U/L (10-37); BILIRUBIN,TOTAL 2.3 MG/DL (0.1-1.0); BLOOD UREA NITROGEN 7 MG/DL (7-18); BUN/CREATININE RATIO 8.3 (5.4-32.0); CALCIUM 8.8 MG/DL (8.5-10.1); CREATININE 0.84 MG/DL (0.60-1.10); GLUCOSE 115 MG/DL (70-104); TOTAL CARBON DIOXIDE 24.3 MMOL/L (24-32); eGFR > 90 ML/MIN
[2022-04-20 10:43] LABS: ANION GAP 10 (8-16); CHLORIDE 104 MMOL/L (99-107); POTASSIUM 3.6 MMOL/L (3.5-5.1); SODIUM 138 MMOL/L (135-145)
--- NOTE | 2022-04-20 14:28 | NUR ---
Patient stated he had a bite or so but didn't want anymore. Feeling full.
--- NOTE | 2022-04-20 15:19 | NUR ---
PRESSURE ULCER EDUCATION: DEFINITION: A pressure ulcer is an area of skin that breaks down when you stay in one position too long. The constant pressure against the skin reduces the blood flow to that area and the affected tissue dies. CAUSES: "Being bedridden or in a wheelchair "Fragile skin "Having a chronic condition, such as diabetes or vascular disease "Inability to move certain parts of your body without assistance "Older age "Incontinence of urine or stool SYMPTOMS: "A reddened area that DOES NOT turn white when pressed on - this can be the beginning of a pressure ulcer "A blister, deep sore or a crater - these can be advanced pressure ulcers FIRST AID: "Relieve the pressure on this area "Keep the area clean and dry "Call your primary doctor if you see any of the above symptoms "DO NOT massage the area "DO NOT use a donut shaped or ring shaped pillow- these actually interfere with the blood flow and cause complications PREVENTION: "Check for pressure ulcers everyday "Change position at least every two hours to relieve pressure "Use items that help relieve pressure- pillows, sheepskin, foam padding, and powders. "Keep skin clean and dry "Eat healthy well balanced meals "Exercise daily IF YOU SEE ANY OF THESE SYMPTOMS WHILE IN THE HOSPITAL - TELL YOUR NURSE IMMEDIATELY. IF YOU SEE ANY OF THESE SYMPTOMS WHILE AT HOME OR HAVE ANY QUESTIONS OR CONCERNS ABOUT PRESSURE ULCERS - CALL YOUR PRIMARY DOCTOR IMMEDIATELY. Addendum: 04/20/22 at 1520 by Fina Milan RN Amended: Links added.
[2022-04-20 18:00] VITALS: BP 144/74
--- NOTE | 2022-04-20 18:00 | NUR ---
I have reviewed and agree with interventions, assessments performed, and documentation by Cecilia Mares LVN.
--- NOTE | 2022-04-20 18:46 | NUR ---
Problems reprioritized. Patient report given, questions answered & plan of care reviewed with Marifer CACERES.
[2022-04-20] MEDS: ondansetron/PF 4mg/2ml inj IV PRN (19:04)
[2022-04-20 19:16] VITALS: BP 156/76
[2022-04-20 22:00] VITALS: BP 150/77
--- NOTE | 2022-04-20 22:12 | NUR ---
Student Medication Administration: For this medication-pass time frame, all medication were reviewed, dispensed, administered and documented per hospital policy by [facility].
--- NOTE | 2022-04-20 22:13 | NUR ---
Student documentation: I have reviewed interventions, assessments performed and documented by [facility].
[2022-04-21] MEDS: piperacillin/tazo 3.375gm/50ml 50 ML IV SCH ×2 (00:02→07:46)
[2022-04-21 06:00] VITALS: BP 119/58
--- NOTE | 2022-04-21 06:08 | NUR ---
Problems reprioritized. Patient report given, questions answered & plan of care reviewed with NICKI CASTRO.
--- NOTE | 2022-04-21 06:56 | NUR ---
Patient in room [facility]. I have received report from Marifer CACERES and had the opportunity to ask questions and assume patient care.
[2022-04-21] MEDS: pantoprazole 40mg Tablet.DR PO SCH (07:47)
[2022-04-21] MEDS: heparin, porcine 5000 units/ml vial SQ SCH (07:48)
[2022-04-21] MEDS: normal saline 1000ml 1,000 ML IV SCH (09:24)
[2022-04-21 09:35] LABS: BASOPHILS # (AUTO) 0.1 X10'3 (0-0.2); BASOPHILS % (AUTO) 0.8 % (0-1); EOSINOPHILS # (AUTO) 0.4 X10'3 (0-0.9); EOSINOPHILS % (AUTO) 3.8 % (0-6); HEMATOCRIT 31.1 % (42.0-52.0); HEMOGLOBIN 10.2 g/dl (14.0-17.9); LYMPHOCYTES # (AUTO) 0.5 X10'3 (1.1-4.8); LYMPHOCYTES % (AUTO) 5.3 % (21-51); MEAN CORPUSCULAR HEMOGLOBIN 29.6 PG (27.0-31.0); MEAN CORPUSCULAR HGB CONC 32.9 g/dL (33.0-36.5); MEAN CORPUSCULAR VOLUME 90.1 FL (78-98); MONOCYTES # (AUTO) 0.7 X10'3 (0-0.9); MONOCYTES % (AUTO) 6.6 % (2-12); NEUTROPHILS # (AUTO) 8.4 X10'3 (1.8-7.7); NEUTROPHILS % (AUTO) 83.5 % (42-75); PLATELET COUNT 493 X10'3 (140-440); RED BLOOD COUNT 3.45 X10'6 (4.70-6.10); RED CELL DISTRIBUTION WIDTH 14.3 % (11.5-14.5); WHITE BLOOD COUNT 10.1 X10'3 (4.5-11.0)
[2022-04-21 09:55] LABS: ALANINE AMINOTRANSFERASE 94 U/L (12-78); ALBUMIN 1.9 G/DL (3.4-5.0); ALBUMIN/GLOBULIN RATIO 0.5 (1.1-1.5); ALKALINE PHOSPHATASE 762 IU/L (46-116); ANION GAP 10 (8-16); ASPARTATE AMINO TRANSFERASE 63 U/L (10-37); BLOOD UREA NITROGEN 6 MG/DL (7-18); BUN/CREATININE RATIO 6.5 (5.4-32.0); CALCIUM 8.4 MG/DL (8.5-10.1); CHLORIDE 103 MMOL/L (99-107); CREATININE 0.93 MG/DL (0.60-1.10); GLUCOSE 116 MG/DL (70-104); POTASSIUM 3.4 MMOL/L (3.5-5.1); SODIUM 137 MMOL/L (135-145); TOTAL CARBON DIOXIDE 24.1 MMOL/L (24-32); TOTAL PROTEIN 5.7 G/DL (6.4-8.2); eGFR 82 ML/MIN
[2022-04-21] MEDS: losartan 50mg tablet PO SCH (09:56)
[2022-04-21] MEDS: amLODIPine 5mg tablet PO SCH (09:57)
[2022-04-21 10:00] VITALS: BP 135/70
--- NOTE | 2022-04-21 13:32 | NUR ---
F/u 3/2: Pt PO remains poor ~25-50% initial clear liquids though regressing w/ 0-25% vs frequent refusals subsequent full liquids and now regular diet not meeting needs; now day 9 poor nutrition status. Pt seen by RD at bedside; pt endorses good appetite now but reports feeling full quickly stomach still getting used to normal portions. Pt had questions regarding post-cholecystectomy diet reports had operation 04/02/22. RD informed pt of current regular diet provided by surgeon and educated pt on advancing typical higher fat content food intake as tolerated. RD contact information provided and pt encouraged to contact dietitian's office if nutrition questions/concerns. Pt reports discharging today w/ orders in EMR; RD reviewed ONS recommendations w/ pt who is amenable to try at home. Given now day 9 poor nutrition status and BLE 2+ edema pt meets minimum non-severe malnutrition criteria; MD notified. LBM /. Limited nutrition interventions at this time given pt discharge today. Rec: 1. continue regular diet per surgeon; consider low-fat diet if PO intolerance 2. If pt not to discharge today; consider Ensure Plus High Protein TIDWM to assist meeting needs 3. bowel care per rx 4. scaled wt this admit; subsequent weekly wts Addendum: 04/21/22 at [address] Amended: Links added.
[2022-04-22] MEDS ORDERED: PANT-47 PO (16:22)
== END 2022-04-21 16:12 | disposition home or self-care (01) | DRG 446 ==
LOC: ER 22:30 → ED HOLD 23:51 → SUR 3N 04-13 07:52
PROVIDERS: ADMIT Internal Medicine; ATTEND Internal Medicine
PROC: 0DB78ZX Excision of Stomach, Pylorus, Via Natural or Artificial Opening Endoscopic, Diagnostic (ICD-10-PCS; principal; 2022-04-13)
PROC: BW211ZZ Computerized Tomography (CT Scan) of Abdomen and Pelvis using Low Osmolar Contrast (ICD-10-PCS; 2022-04-13)
PROC: 0FJB8ZZ Inspection of Hepatobiliary Duct, Via Natural or Artificial Opening Endoscopic (ICD-10-PCS; 2022-04-14)
DX: K80.51 Calculus of bile duct without cholangitis or cholecystitis with obstruction (principal); E78.00 Pure hypercholesterolemia, unspecified; I10 Essential (primary) hypertension; R14.0 Abdominal distension (gaseous); Z20.822 Contact with and (suspected) exposure to COVID-19; R74.01 Elevation of levels of liver transaminase levels; K21.00 Gastro-esophageal reflux disease with esophagitis, without bleeding; K29.80 Duodenitis without bleeding; Z85.47 Personal history of malignant neoplasm of testis; Z90.49 Acquired absence of other specified parts of digestive tract; Z79.899 Other long term (current) drug therapy; Z79.82 Long term (current) use of aspirin
CPT/HCPCS: 43260; 43261; 99285; Z7506; Z7508; 36415; 74177; 76700; 80053; 82948; 83605; 83690; 84145; 85007; 85008; 85025; 85610; 85730; 87040; 87081; 87811; 99152; 99153; A4618; A4620; A4649; A6196; A6212; A6266; A6449; C1769; C9113; G0378; J0330; J0780; J1200; J1610; J1644; J2250; J2270; J2405; J2543; J2704; J3010; J3490; J7030; Q9963; Q9967